=== PATIENT | female | born 1965 | race African-American/Black ===

== ENCOUNTER 2021-09-20 13:04 | Outpatient (CLI) | payer BC, SELFPAY ==
--- NOTE | ~2021-09-20 | XR_ITS ---
EXAMINATION: XR knee LT 3V DATE: 09/20/2021 13:32 INDICATION: Left knee pain. TECHNIQUE: 3 views of left knee were obtained. COMPARISON: None. FINDINGS: Bone alignment is normal. No fracture. There is mild tricompartmental osteoarthritis charac terized by tiny osteophytes. No joint space narrowing. No knee joint effusion. IMPRESSION: 1. Mild left knee osteoarthritis. Reviewed, dictated and finalized at location A.
== END 2021-09-20 13:05 | disposition home or self-care (01) ==
PROVIDERS: PCP Physician Assistant; Visit Provider Physician Assistant
DX: M25.562 Pain in left knee (principal); M17.12 Unilateral primary osteoarthritis, left knee
CPT/HCPCS: 73562

== ENCOUNTER 2022-06-14 19:47 | Emergency (ER) | payer OTHER, SELFPAY ==
[2022-06-14 19:56] VITALS: BP 132/89; PULSE 86; RESP 16; TEMP 36.7; O2SAT 98
[2022-06-14 19:57] VITALS: BP 132/89; PULSE 86; RESP 16; TEMP 36.7; O2SAT 98
--- NOTE | 2022-06-14 20:04 | ED.WOUNDLAC ---
HPI - Wound/Laceration General Chief Complaint: Wound/Laceration Stated Complaint: cut in lip Time Seen by Provider: 06/14/22 20:00 Source: patient Mode of arrival: ambulatory Limitations: no limitations History of Present Illness HPI narrative: 56-year-old female presented for complaint of left upper lip laceration after injury last night. She states she had a couple of alcoholic beverages, after which she slipped in the garage when getting out of her car and struck her face on the concrete. Reports mild left cheek swelling. She denies loss of consciousness. States the bleeding resolved on its own. She applied bacitracin and ice and took Tylenol. Denies broken teeth, headache, vision changes, dizziness, n/v. Related Data Home Medications Medication Instructions Recorded Confirmed atorvastatin 20 mg tablet mg 06/14/22 losartan 100 tablet 06/14/22 mg-hydrochlorothiazide 12.5 mg tablet Allergies Allergy/AdvReac Type Severity Reaction Status Date / Time No Known Allergies Allergy Verified 06/14/22 19:56 Review of Systems Review of Systems: CONSTITUTIONAL: Denies body aches, fever, chills, or sweats. EYES: Denies visual changes, redness, or discharge. ENT: Denies rhinorrhea, congestion CARDIOVASCULAR: Denies chest pain, palpitations, or edema. RESPIRATORY: Denies cough or dyspnea. GASTROINTESTINAL: Denies abdominal pain, nausea, vomiting, or diarrhea. SKIN: per HPI MUSCULOSKELETAL: Denies back pain, joint pain, or myalgia. NEUROLOGIC: Denies headache, numbness, tingling, or weakness. [facility] Past Medical History Medical History Hypertension Comments At time of signature, I have reviewed and agree with nursing past medical, surgical, social and family history unless otherwise noted. Please see nursing chart for further information. There is no relevant family history pertinent to the presenting complaint Exam Narrative: GENERAL: Well-appearing HEAD: Normocephalic, atraumatic. EYES: conjunctivae clear, and EOMI. ENT: Mucous membranes moist. Left upper lip laceration approximately 1.5 cm, no active bleeding. Margins are approximating. No vermilion border involvement. Moderate lip swelling. Dentition intact without laxity. oropharynx without edema, erythema or lesions. NECK: Supple. No lymphadenopathy CHEST: Clear to auscultation. HEART: Regular rate and rhythm. SKIN: Warm, dry. NEURO: Alert and oriented x3. HENMT: Mouth/tongue images: 1. site of laceration Course Course Emergency Course: Patient is aware of diagnosis, understands and agrees to treatment plan. Anticipatory guidance given. Patient agrees to follow-up as directed and is aware of reasons to seek care at the emergency department. Portions of this record may have been created with voice recognition software Level of Care: Express Care Visit Vital Signs Vital signs: Vital Signs Temperature 98.1 F 06/14/22 19:56 Pulse Rate 86 06/14/22 19:56 Respiratory Rate 16 06/14/22 19:56 Blood Pressure 132/89 06/14/22 19:56 Pulse Oximetry 98 06/14/22 19:56 Oxygen Delivery Room Air 06/14/22 19:56 Temperature 98.1 F 06/14/22 19:57 Pulse Rate 86 06/14/22 19:57 Respiratory Rate 16 06/14/22 19:57 Blood Pressure 132/89 06/14/22 19:57 Pulse Oximetry 98 06/14/22 19:57 Oxygen Delivery Room Air 06/14/22 19:57 Reviewed MDM - Wound/Laceration MDM Narrative Medical decision making narrative: Discussed physical exam findings. Wound appears healing. Updated tetanus, Rx antibiotics. Advised supportive measures and signs/symptoms to go to the ER. Pt is appropriate for outpt treatment and f/u. Differential Diagnosis Differential diagnosis: Likely laceration, abrasion and avulsion of skin Discharge Plan Discharge Clinical Impression: Laceration of lip Qualifiers: Encounter type: initial encounter Qualified Code(s):
[2022-06-14] MEDS: TETANUS,DIPHTHERIA,AC PERTUSSIS ADULT (0.5 ML) BOOSTRIX IM (20:09)
== END 2022-06-14 20:15 | disposition home or self-care (01) ==
PROVIDERS: Emergency Provider Nurse Practitioner Family
DX: S01.511A Laceration without foreign body of lip, initial encounter (principal); V48.4XXA Person boarding or alighting a car injured in noncollision transport accident, initial encounter; Z23 Encounter for immunization; I10 Essential (primary) hypertension
CPT/HCPCS: 90471; 90715; 99212; G0463

== ENCOUNTER → 2022-11-04 10:41 | Outpatient (CLI) | payer OTHER, SELFPAY ==
--- NOTE | ~2022-11-04 | MR_ITS ---
MRI of the left knee Clinical history: Medial meniscal tear Technique: Coronal proton density and proton density-weighted images, sagittal proton-density and T2 fat-sat images, and axial proton-density fat-saturated images were acquired. Findings: Anterior and posterior cruciate ligaments are intact. Medial collateral ligament and the la teral collateral ligament complex are intact. Popliteus tendon is intact. There is complex tearing of the posterior horn and body medial meniscus. No definite lateral meniscal tear seen. There is high-grade chondromalacia extensively involving the medial compartment, with subchondral mar row edema in the medial tibial plateau region. There is mild to moderate chondromalacia of the latera l compartment. There is mild chondromalacia patella. There is extensive moderate chondromalacia the f emoral trochlea. Small tricompartmental osteophytes are present. Extensor mechanism is intact. Small joint effusion present. No Sanderson's cyst. Impression: Complex tearing of the posterior horn and body of the medial meniscus. Mild tricompartmental degenerative change, as detailed above. Small joint effusion. Reviewed, dictated and finalized at location . Impression: Complex tearing of the posterior horn and body of the medial meniscus. Mild tricompartmental degenerative change, as detailed above. Small joint effusion.
== END ==
DX: M23.222 Derangement of posterior horn of medial meniscus due to old tear or injury, left knee (principal); M25.462 Effusion, left knee
CPT/HCPCS: 73721

== ENCOUNTER 2023-09-09 01:33 | Day surgery (SDC) | payer OTHER, SELFPAY ==
--- NOTE | 2023-09-03 13:11 | PC.NURSE ---
5 attempts have been made to reach pt for pre-op interview and instructions with no answer- messages have been left on voicemail for pt to call back with no return calls. I called Sherri Castaneda PA-C and no other numbers for patient are listed. They will attempt to call pt today to have her call us.
--- NOTE | 2023-09-05 12:25 | PC.NURSE ---
Multiple attempts made since 08/27/2023 with voice messages left 7 times with no response. I spoke with Dr. Castaneda office and they reached out yesterday with no response and will attempt again today. I did inform them as well as leaving a message on pts voicemail that if we do not hear back today or over the weekend her prodedures will be canceled Friday.
[2023-09-05 14:55] VITALS: BMI 36.1
[2023-09-09 12:43] VITALS: BP 127/90; PULSE 89; RESP 18; TEMP 36.1; O2SAT 100
[2023-09-09] MEDS: LACTATED RINGERS 1,000 ML 150 ML IV CONT (12:58)
--- NOTE | 2023-09-09 13:02 | WPDANESEPPF ---
Anes - Initial Pre Proc Eval Procedure: Operation Date: 09/09/23 14:00 Proposed Procedures p Esophagogastroduodenoscopy & Colonoscopy - Zeferino Nevarez MD Date/Time: 09/09/23 13:02 Surgeon: Zeferino Nevarez MD Pre Op Diagnosis: iron deficiency anemia unspecified, change in patt Patient Data Age: 58 Gender: F Height: 1.63 m Weight: 94.5 kg Last Vital Signs Temp 36.1 C L 09/09/23 12:43 Pulse 89 09/09/23 12:43 Resp 18 09/09/23 12:43 BP 127/90 09/09/23 12:43 Pulse Ox 100 09/09/23 12:43 O2 Del Method Room Air 09/09/23 12:43 Allergies Allergy/AdvReac Type Severity Reaction Status Date / Time No Known Allergies Allergy Verified 09/09/23 12:41 Home Medications Medication Instructions Recorded Confirmed Type atorvastatin 20 mg tablet 20 mg PO DAILY 06/14/22 09/05/23 History losartan 100 1 tablet PO DAILY 06/14/22 09/09/23 History mg-hydrochlorothiazide 12.5 mg tablet pantoprazole 40 mg tablet,delayed 40 mg PO DAILY 09/05/23 09/05/23 History release sertraline 50 mg tablet 50 mg PO DAILY 09/05/23 09/05/23 History Patient hx anesthesia problems: none Family hx anesthesia problems: none Results Review: All pre-operative results and documents have been reviewed as part of the pre-operative evaluation. [facility] Past Medical History Medical History (Updated 09/09/23 @ 13:02 by Woo Angel MD) Hypertension Obesity Surgical History Surgical History (Updated 09/09/23 @ 13:05 by Woo Angel MD) History of tubal ligation Social History Social History Smoking packs per day: 0.5 Smoking cigarettes per day: 10.0 Years smoked: 15 Smoking pack-years: 7.50 Smoking status: Current every day smoker Tobacco type: cigarettes Alcohol intake: current Drinks per week: 3 Alcohol use details: GLASSES WINE Substance use: never Substance use type: does not use Living arrangements: with family Spiritual care concerns: No Anes - Eval Final PreProcedure Day of Procedure 09/09/23 13:02 Patient weight: obese Heart: regular rate and rhythm Lungs: clear to auscultation Airway: Mallampati scale class II Neurological: alert and oriented Last oral intake: >/= 8 hours ASA classification: III Emergent: no Anesthetic plan: proceed Anesthesia type and monitoring: general GIVS and standard monitoring Results Review: All pre-operative results and documents have been reviewed as part of the pre-operative evaluation. Informed Consent: The patient's anesthetic plan and its attendant risks and benefits were discussed with the patient/family/POA. Questions were solicited and answers provided to the satisfaction of the patient/family/POA.
--- NOTE | 2023-09-09 13:34 | PM.HPGS ---
History of Present Illness History of Present Illness Consent: Risks, benefits, and alternatives have been discussed and questions answered. Patient agrees to proceed with procedure. Chief complaint: iron deficiency anemia unspecified, change in patt Narrative: Natalie Sparks is a 58 year old female with constipation, bloating and abdominal discomfort, last colonoscopy about 16 years ago. Review of Systems Review of Systems: All systems reviewed & are unremarkable except as noted in HPI and below PMFSH Past Medical History Medical History (Updated 09/09/23 @ 13:02 by Woo Angel MD) Hypertension Obesity Surgical History Surgical History (Updated 09/09/23 @ 13:05 by Woo Angel MD) History of tubal ligation Social History Social History Smoking packs per day: 0.5 Smoking cigarettes per day: 10.0 Years smoked: 15 Smoking pack-years: 7.50 Smoking status: Current every day smoker Tobacco type: cigarettes Alcohol intake: current Drinks per week: 3 Alcohol use details: GLASSES WINE Substance use: never Substance use type: does not use Living arrangements: with family Spiritual care concerns: No Meds Home Medications and Allergies Home Medications Medication Instructions Recorded Confirmed Type atorvastatin 20 mg tablet 20 mg PO DAILY 06/14/22 09/05/23 History losartan 100 1 tablet PO DAILY 06/14/22 09/09/23 History mg-hydrochlorothiazide 12.5 mg tablet pantoprazole 40 mg tablet,delayed 40 mg PO DAILY 09/05/23 09/05/23 History release sertraline 50 mg tablet 50 mg PO DAILY 09/05/23 09/05/23 History Allergies Allergy/AdvReac Type Severity Reaction Status Date / Time No Known Allergies Allergy Verified 09/09/23 12:41 Vital Signs Vital Signs - 24 hr 09/09/23 12:43 Temperature 97 F L Pulse Rate 89 Respiratory Rate 18 Blood Pressure 127/90 Pulse Oximetry 100 Oxygen Delivery Room Air Exam Const: General: comfortable and no acute distress HENMT: Face/Nose/Sinus: Normal nares present Eyes: General: appearance normal, both eyes and all related structures Neck: Neck: no JVD Resp: Auscultation: clear to auscultation bilaterally Cardio: Rate: regular rate Rhythm: regular rhythm GI: Inspection: non-distended GI Palp: Yes Soft to palpation Skin: General skin exam: normal color Neuro: General: gait normal Speech: normal speech Extrem: General: normal to inspection Psych: Mental Status: mental status grossly normal Assessment and Plan Assessment and plan (1) Abdominal bloating: Code(s): R14.0 - Abdominal distension (gaseous) Status: Acute Assessment and Plan: egd and colonoscopy (2) Constipation: Qualifiers: Constipation type: chronic idiopathic constipation Qualified Code(s): K59.04 - Chronic idiopathic constipation Code(s): K59.00 - Constipation, unspecified Status: Acute (3) Change in bowel habits: Code(s): R19.4 - Change in bowel habit Status: Acute (4) BROOK (iron deficiency anemia): Qualifiers: Iron deficiency anemia type: unspecified iron deficiency Qualified Code(s): D50.9 - Iron deficiency anemia, unspecified Code(s): D50.9 - Iron deficiency anemia, unspecified Status: Acute
--- NOTE | 2023-09-09 13:57 | SUR.OPER ---
EGD START 1340, END 1344 COLONOSCOPY START 1349, END 1358
[2023-09-09 14:03] VITALS: BP 117/80; PULSE 96; RESP 19; O2SAT 100
[2023-09-09 14:13] VITALS: BP 132/92; PULSE 76; RESP 17; O2SAT 100
[2023-09-09 14:23] VITALS: BP 133/84; PULSE 60; RESP 15; O2SAT 100
== END 2023-09-09 14:48 | disposition home or self-care (01) ==
PROVIDERS: PCP Physician Assistant; Referring Provider Nurse Practitioner Family; Visit Provider Internal Medicine Gastroenterology
PROC: 0DJ08ZZ Inspection of Upper Intestinal Tract, Via Natural or Artificial Opening Endoscopic (ICD-10-PCS; CPT 43235; principal; 2023-09-09 14:00)
DX: K29.50 Unspecified chronic gastritis without bleeding (principal); K64.8 Other hemorrhoids; K59.00 Constipation, unspecified; D50.9 Iron deficiency anemia, unspecified; I10 Essential (primary) hypertension; E66.9 Obesity, unspecified; Z68.35 Body mass index [BMI] 35.0-35.9, adult; F17.210 Nicotine dependence, cigarettes, uncomplicated
CPT/HCPCS: 45378; 43239; 88305; 88342; J2704; J7120

== ENCOUNTER 2023-11-05 13:04 | Outpatient (CLI) | payer OTHER, SELFPAY ==
--- NOTE | ~2023-11-05 | MM_ITS ---
EXAMINATION: MM screening raghu BI w harvey HISTORY: Screening mammogram TECHNIQUE: Craniocaudal and mediolateral oblique 3-D tomosynthesis images were obtained and synthetic 2-D images were generated. CAD analysis was submitted and interpreted. COMPARISON: No prior mammogram is available for comparison at this institution. BREAST PARENCHYMAL COMPOSITION:Not Dense. The breasts are almost entirely fatty FINDINGS: No suspicious mass, calcification, or architectural distortion are identified in either chuy ast to suggest malignancy. There has been no suspicious interval change. IMPRESSION: No mammographic evidence of malignancy. Recommend routine screening mammography in one year. BI-RADS Category 1: Negative Reviewed, dictated and finalized at location .
== END 2023-11-05 13:05 | disposition home or self-care (01) ==
LOC: MICIMG 13:05
PROVIDERS: PCP Physician Assistant; Visit Provider Physician Assistant
DX: Z12.31 Encounter for screening mammogram for malignant neoplasm of breast (principal)
CPT/HCPCS: 77063; 77067

== ENCOUNTER 2023-12-03 06:52 | Emergency (ER) | payer OTHER, SELFPAY ==
[2023-12-03 06:52] VITALS: BP 116/91; PULSE 80; RESP 18; TEMP 36.4; O2SAT 100
[2023-12-03 07:55] LABS: BEDSIDEPREGUCG Negative (Negative)
[2023-12-03 07:58] LABS: Basophils Absolute Auto 0.1 K/mm3 (0.0-0.1); Eosinophils Absolute Auto 0.2 K/mm3 (0-0.3); Eosinophils Percent Auto 3.2 % (0-4.4); Hematocrit 43.7 % (37.0-47.0); Hemoglobin 13.7 g/dL (12.0-15.0); Immature Granulocyte Absolute 0.05 K/mm3 (0.00-0.031); Immature Granulocyte Percent A 0.8 % (0-0.5); Lymphocytes Absolute Auto 2.62 K/mm3 (0.9-3.2); Lymphocytes Percent Auto 42.1 % (18.3-44.2); Mean Corpuscular HGB Conc 31.4 g/dl (32-36); Mean Corpuscular Hemoglobin 27.7 pg (26-34); Mean Corpuscular Volume 88.5 fl (80-100); Mean Platelet Volume 9.4 fl (7.4-10.4); Monocytes Absolute Auto 0.5 K/mm3 (0.1-0.6); Neutrophils Absolute Auto 2.8 K/mm3 (1.3-6.7); Neutrophils Percent Auto 44.9 % (45.5-73.1); Platelet Count Result 278 k/mm3 (150-375); Red Blood Count 4.94 M/mm3 (4.2-5.4); White Blood Count 6.2 K/mm3 (4.5-10.0)
[2023-12-03 08:07] LABS: Add Urine Microscopic? YES; Appearance Urine Cloudy (Clear); Bacteria Urine 1+ /hpf; Bilirubin Urine Negative (Negative); Blood Urine Negative (Negative); Color Urine Yellow (Yellow); Glucose Urine UA Negative (Negative); Ketones Urine Negative (Negative); Leukocyte Esterase Ur 1+ LEU/UL (Negative); Nitrate Urine Negative (Negative); Non Pathogenic Casts 0-2; Protein Urine 1+ mg/dL (Negative); RBC Urine 0-2 /hpf (0-2); Specific Grav Ur 1.017 (1.001-1.035); Squamous Epithelial Cell Urine Many /hpf (Few); Urobilinogen Urine 0.2 mg/dL (<2.0)
[2023-12-03 08:09] LABS: Alanine Aminotransferase 29 U/L (6-35); Albumin Level 4.6 g/dL (3.5-5.1); Alkaline Phosphatase 155 U/L (38-126); Anion Gap 9 mmol/L (4-12); Aspartate Amino Transferase 38 U/L (14-36); Bilirubin,Total 0.2 mg/dL (0.2-1.3); Blood Urea Nitrogen 10 mg/dL (7-17); Calcium 9.3 mg/dL (8.4-10.2); Carbon Dioxide 30 mmol/L (22-30); Chloride 102 mmol/L (98-107); Estimated CRCL calculation 83 ml/min; Estimated Glomerular Filt Rate > 60; Glucose 99 mg/dL (65-110); Potassium 3.7 mmol/L (3.4-5.0); Sodium 141 mmol/L (137-145)
[2023-12-03 08:13] LABS: Ethanol 158 mg/dL (<10)
[2023-12-03 08:30] LABS: Amphetamine Screen Urine Negative (Negative); Barbiturate Screen Urine Negative (Negative); Benzodiazepines Screen Urine Negative (Negative); Cannabinoid Screen Urine Negative (Negative); Cocaine Screen Urine Negative (Negative); Methadone Screen Urine Negative (Negative); Opiate Screen Urine Negative (Negative); Phencyclidine Screen Urine Negative (Negative)
[2023-12-03 08:38] LABS: Influenza A QL RT-PCR Negative (Negative); Influenza B QL RT-PCR Negative (Negative); RSV RNA, RT-PCR Negative (Negative); SARS-CoV-2 RNA PCR Negative (Negative)
[2023-12-03 08:44] LABS: Thyroid Stimulating Hormone Reflex 0.971 uIU/mL (0.465-4.68)
--- NOTE | 2023-12-03 09:49 | ED.PSYCH ---
HPI - Psych General Chief Complaint: Psychiatric Symptoms Stated Complaint: anxiety attack Time Seen by Provider: 12/03/23 07:06 History of Present Illness HPI Narrative: Patient is a 58-year-old female who presents ER with anxiety and depression. Patient reports she has significant stressors related to work and alcohol abuse. She drink a pt of hard liquor last night. She is having thoughts of committing suicide by taking a bottle full of blood pressure medication. She has not had SI type issues since she was in her 20s. No medical complaints. Related Data Home Medications Medication Instructions Recorded Confirmed atorvastatin 20 mg tablet 20 mg PO DAILY 06/14/22 09/05/23 losartan 100 1 tablet PO DAILY 06/14/22 09/09/23 mg-hydrochlorothiazide 12.5 mg tablet pantoprazole 40 mg tablet,delayed 40 mg PO DAILY 09/05/23 09/05/23 release sertraline 50 mg tablet 50 mg PO DAILY 09/05/23 09/05/23 Allergies Allergy/AdvReac Type Severity Reaction Status Date / Time No Known Allergies Allergy Verified 09/09/23 12:41 Review of Systems Review of Systems: All systems reviewed & are unremarkable except as noted in HPI and below Constitutional: Constitutional: Reports no additional constitutional complaints ENT: Reports system reviewed and no additional complaints, except as documented Cardiovascular: Cardiovascular: Reports no additional cardiovascular complaints Respiratory: Respiratory: Reports no additional respiratory complaints Musculoskeletal: Musculoskeletal: Reports no additional musculoskeletal complaints PMF Past Medical History Medical History (Updated 12/03/23 @ 17:44 by Chris Moncada MD) Hypertension Obesity Surgical History Surgical History (Updated 09/09/23 @ 13:05 by Woo Angel MD) History of tubal ligation Social History Social History Smoking packs per day: 0.5 Smoking cigarettes per day: 10.0 Years smoked: 15 Smoking pack-years: 7.50 Smoking status: Current every day smoker Tobacco type: cigarettes Alcohol intake: current Drinks per week: 3 Alcohol use details: GLASSES WINE Substance use: never Substance use type: does not use Living arrangements: with family Spiritual care concerns: No Exam Narrative: GENERAL: Well-appearing, well-nourished, and in no acute distress. HEAD: Normocephalic, atraumatic. ENT: Mucous membranes moist. NECK: Supple. CHEST: Clear to auscultation. No respiratory distress. HEART: Regular rate and rhythm. Normal peripheral pulses. ABDOMEN: Soft, nontender, nondistended. EXTREMITIES: Normal range of motion. No edema. SKIN: Warm, dry, no rash. NEURO: Alert and oriented x3. PSYCH: Patient sources depression and SI. No HI. Not responding to internal stimuli. Course Course Emergency Course: Patient medically cleared for psychiatric care. Evaluated by crisis and patient is voluntary. Accepted to [facility] by Dr. Mendez at 1743 Vital Signs Vital signs: Vital Signs Temperature 97.6 F 12/03/23 06:52 Pulse Rate 80 12/03/23 06:52 Respiratory Rate 18 12/03/23 06:52 Blood Pressure 116/91 H 12/03/23 06:52 Pulse Oximetry 100 12/03/23 06:52 Oxygen Delivery Room Air 12/03/23 06:52 Temperature 97.6 F 12/03/23 16:59 Pulse Rate 77 12/03/23 16:59 Respiratory Rate 16 12/03/23 16:59 Blood Pressure 152/102 H 12/03/23 16:59 Pulse Oximetry 100 12/03/23 16:59 Oxygen Delivery Room Air 12/03/23 06:52 MDM - Psych Lab Data 12/03/23 07:51 12/03/23 07:51 Labs: Lab Results 12/03/23 12/03/23 12/03/23 Range/Units 07:51 07:54 12:19 WBC 6.2 (4.5-10.0) K/mm3 RBC 4.94 (4.2-5.4) M/mm3 Hgb 13.7 (12.0-15.0) g/dL Hct 43.7 (37.0-47.0) % MCV 88.5 (80-100) fl MCH 27.7 (26-34) pg MCHC 31.4 L (32-36) g/dl RDW 14.0 (11.5-14.5) % Plt Count 278
[2023-12-03 12:14] VITALS: BP 134/88; PULSE 70; RESP 17; TEMP 36.6; O2SAT 100
[2023-12-03 12:36] LABS: Ethanol 28 mg/dL (<10)
--- NOTE | 2023-12-03 14:54 | PC.NURSE ---
crisis at bedside at this time to assess patient.
--- NOTE | 2023-12-03 16:19 | PC.NURSE ---
[facility]. [facility] to call back for RN to RN report.
[2023-12-03 16:59] VITALS: BP 152/102; PULSE 77; RESP 16; TEMP 36.4; O2SAT 100
[2023-12-03 21:29] VITALS: BP 138/78; PULSE 66; RESP 20; TEMP 36.3; O2SAT 99
== END 2023-12-03 21:34 ==
PROVIDERS: Emergency Provider Emergency Medicine; PCP Physician Assistant
DX: F32.9 Major depressive disorder, single episode, unspecified (principal); F10.10 Alcohol abuse, uncomplicated; Y90.6 Blood alcohol level of 120-199 mg/100 ml; R45.851 Suicidal ideations; Z11.52 Encounter for screening for COVID-19; I10 Essential (primary) hypertension; E66.9 Obesity, unspecified; Z68.34 Body mass index [BMI] 34.0-34.9, adult; F17.210 Nicotine dependence, cigarettes, uncomplicated
CPT/HCPCS: 36415; 80053; 80307; 81001; 81025; 82077; 84443; 85025; 87086; 87637; 99285

== ENCOUNTER 2024-03-15 14:43 | Emergency (ER) | payer OTHER, SELFPAY ==
[2024-03-15 14:47] VITALS: BP 142/90; PULSE 106; RESP 20; TEMP 37.9; O2SAT 97
[2024-03-15 15:20] LABS: EDCOVIDSCREEN Negative (Negative); EDINFLUASCREEN Positive (Negative); EDINFLUBSCREEN Negative (Negative)
--- NOTE | 2024-03-15 15:27 | ED.URI ---
HPI - URI/Sore Throat General Chief Complaint: Upper Respiratory Infection Stated Complaint: Chills/Bodyaches Time Seen by Provider: 03/15/24 15:19 Source: patient and RN notes reviewed Mode of arrival: ambulatory Limitations: no limitations History of Present Illness HPI Narrative: Patient presents today complaining of body aches, cough, chills, lightheadedness, and 1 episode of vomiting. Symptoms began last night. Denies shortness of breath or fever. She took 1 Aleve today without much relief. 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 Related Data Home Medications ?Medication ?Instructions ?Recorded ?Confirmed ?Last Taken ?Type atorvastatin 20 mg tablet 20 mg PO DAILY 06/14/22 09/05/23 Unknown History losartan 100 1 tablet PO DAILY 06/14/22 09/09/23 09/09/23 History mg-hydrochlorothiazide 12.5 mg tablet pantoprazole 40 mg tablet,delayed 40 mg PO DAILY 09/05/23 09/05/23 Unknown History release sertraline 50 mg tablet 50 mg PO DAILY 09/05/23 09/05/23 Unknown History Allergies Allergy/AdvReac Type Severity Reaction Status Date / Time No Known Allergies Allergy Verified 03/15/24 14:58 Review of Systems Review of Systems: CONSTITUTIONAL: Denies fever, or sweats.+ body aches, chills EYES: Denies visual changes, redness, or discharge. ENT: Denies rhinorrhea, congestion, sore throat, or otalgia. CARDIOVASCULAR: Denies chest pain, palpitations, or edema. RESPIRATORY: Denies dyspnea.+ cough GASTROINTESTINAL: Denies abdominal pain, nausea,or diarrhea.+ vomiting GENITOURINARY: Denies dysuria or hematuria. SKIN: Denies rash, itching, or wounds. MUSCULOSKELETAL: Denies back pain, joint pain, or myalgia. NEUROLOGIC: Denies headache, numbness, tingling, or weakness.+ lightheadedness PSYCH: Denies depression or anxiety. [facility] Past Medical History Medical History Obesity Hypertension Surgical History Surgical History History of tubal ligation Social History Social History Smoking packs per day: 0.5 Smoking cigarettes per day: 10.0 Years smoked: 15 Smoking pack-years: 7.50 Smoking status: Current every day smoker Tobacco type: cigarettes Alcohol intake: current Drinks per week: 3 Alcohol use details: GLASSES WINE Substance use: never Substance use type: does not use Living arrangements: with family Spiritual care concerns: No Comments At time of signature, I have reviewed and agree with nursing past medical, surgical, social and family history unless otherwise noted. Please see nursing chart for further information. There is no relevant family history pertinent to the presenting complaint Exam Narrative: GENERAL: Mildly ill-appearing, well-nourished, and in no acute distress. HEAD: Normocephalic, atraumatic. EYES: EOMI. No redness or drainage. Conjunctivae normal. ENT: Mucous membranes pink and moist. Nares mildly congested. No rhinorrhea. TMs normal bilaterally. Throat normal. Uvula midline. NECK: Normal AROM. Supple. No lymphadenopathy. CHEST: No respiratory distress. Clear to auscultation. HEART: Regular rate and rhythm. No murmur appreciated. ABDOMEN: Soft, nontender, nondistended, normal active bowel sounds. EXTREMITIES: Normal range of motion. No edema. SKIN: Warm, dry, no rash. Capillary refill normal. Normal skin turgor. NEURO: No focal deficits. Alert and oriented x3. Gait steady. PSYCH: Normal affect. No signs of depression or anxiety. Course Course Level of Care: Express Care Visit Vital Signs Vital signs: Vital Signs Temperature 100.2 F H 03/15/24 14:47 Pulse Rate 106 H 03/15/24 14:47 Respiratory Rate 03/15/24 14:47 Blood Pressure 142/90 H 03/15/24 14:47 Pulse Oximetry 97 03/15/24 14:47 Oxygen Delivery Room Air 03/15/24 14:47 Temperature 100.2 F H 03/15/24 14:47 Pulse Rate 106 H 03/15/24 14:47 Respiratory Rate 03/15/24 14:47 Blood Pressure 142/90 H 03/15/24 14:47 Pulse Oximetry 97 03/15/24 14:47 Oxygen Delivery Room Air 03/15/24 14:47 Reviewed MDM - URI/Sore Throat MDM Narrative Medical decision making narrative: COVID negative. Influenza a positive. Prescription for Tamiflu and Zofran sent to pharmacy. Anticipatory guidance given. ED precautions given. Differential Diagnosis Differential diagnosis: Likely upper respiratory infection, viral infection, influenza and other (COVID-19) Lab Data Attestation: I reviewed the patient's lab results. Labs: Lab Results 03/15/24 Range/Units 15:19 POC Influenza A Ag Positive (Negative) POC Influenza B Ag Negative (Negative) POC SARS CoV-2 Ag Negative (Negative) Critical Care Time Critical Care Time Critical Care Time: No Discharge Plan Discharge Clinical Impression: Influenza A Patient Disposition: Home, Self-Care Condition: Stable Instructions: Influenza (DC) Additional Instructions: You have tested positive for influenza A. Please take the Tamiflu as prescribed until gone. Take the Zofran as needed for nausea or vomiting. Rest and stay hydrated. Take Tylenol or ibuprofen for pain or fever. Follow-up with your PCP in 1 week if symptoms are not improving. Go to the ER immediately for worsening symptoms such as shortness of breath, chest pain, dehydration. Your blood pressure was elevated above 120/80 today at Urgent Care. This puts you above the threshold for follow up. Please schedule a followup visit with your personal physician as soon as possible, for further evaluation and treatment. Even blood pressure exceeding 120/80 may indicate pre-hypertension. Patient Language: Syriac Prescriptions: New ondansetron 8 mg tablet,disintegrating 8 mg PO Q4-6H PRN (Reason: nausea and vomiting) Qty: 20 0RF oseltamivir [Tamiflu] 75 mg capsule 75 mg PO Q12H 5 Days Qty: 10 0RF No Action atorvastatin 20 mg tablet 20 mg PO DAILY losartan-hydrochlorothiazide 100-12.5 mg tablet 1 tablet PO DAILY pantoprazole 40 mg tablet,delayed release (DR/EC) 40 mg PO DAILY sertraline 50 mg tablet 50 mg PO DAILY Follow-up/Referrals: Leonel,MANUELITO Venegas [Primary Care Provider] - Stand Alone Forms: Work/School Release IP Time of Disposition: 15:31
== END 2024-03-15 15:35 | disposition home or self-care (01) ==
PROVIDERS: Emergency Provider Nurse Practitioner; PCP Physician Assistant
DX: J10.1 Influenza due to other identified influenza virus with other respiratory manifestations (principal); Z20.822 Contact with and (suspected) exposure to COVID-19; F17.210 Nicotine dependence, cigarettes, uncomplicated; I10 Essential (primary) hypertension; E66.9 Obesity, unspecified
CPT/HCPCS: 87426; 87804; 99213; G0463

== ENCOUNTER 2024-08-19 13:08 | Emergency (ER) | payer OTHER, SELFPAY ==
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
[2024-08-19 13:03] VITALS: BP 155/83; PULSE 67; RESP 16; TEMP 36.8; O2SAT 99
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
--- OUTSIDE RECORDS SUMMARY | 2024-08-19 14:59 | XMS_ITS | Clinical Summary ---
Author Organization [facility] [address] Address [address] [place] [phone] Care Team Providers Care Tax Investigator Name Role Phone Sherri Castaneda Primary Care Provider + Allergies No known active allergies Medications losartan-hydroCHLOR Othiazide (HYZAAR) 100-12.5 mg per tablet Active acetaminophen (TYLENOL) 325 mg tablet Take 2 tablets (650 mg total) by mouth every 6 (six) hours as needed for pain Active atorvastatin (LIPITOR) 20 mg tablet Take 1 tablet (20 mg total) by mouth daily 3 Active naproxen (NAPROSYN) 500 mg tablet Take 1 tablet (500 mg total) by mouth 2 (two) times a day as needed for pain 60 tablet 4 Active lidocaine (LIDODERM) 5 % Place 1 patch on the skin daily Remove & discard patch within 12 hours or as directed by MD. 30 patch [address] (PROTONIX) 40 mg EC tablet Take 1 tablet (40 mg total) by mouth daily 4 Active sertraline (ZOLOFT) 50 mg tablet Take 1 tablet (50 mg total) by mouth daily 4 Active thiamine (VITAMIN B1) 100 mg tablet Take 1 tablet (100 mg total) by mouth daily 4 Active celecoxib (CeleBREX) 200 mg capsuleIndications: Primary osteoarthritis of right knee Take 1 capsule (200 mg total) by mouth 2 (two) times a day for 7 days 14 capsule 5 Active Active Problems Problem Noted Date Diagnosed Date Primary osteoarthritis of left knee 05/26/2024 Assessment & Plan (05/26/2024 11:04 AM CDT): Injection done as noted in the procedure note today. Patient tolerated the procedure well. Advised to watch for signs of infection or bleeding and to go to the ER or call me if any of these occur. I advise that will take upwards of six weeks for this to be fully effective but it should gradually improve over time. If this is not acceptable for her at six weeks we can reconsider other options but may need to consider referral to surgery. Patient is due to see me next week for the right side and we will get her approved for the gel injections there as well but I will do a workup on her as it has been quite a bit of time since she has had a right knee x-ray as well. She exhibited understanding and is in agreement with this plan of care. Constipation 01/21/2023 Essential hypertension 02/28/2022 Hyperlipidemia 02/28/2022 Obesity 09/20/2021 Prediabetes 01/25/2021 Resolved Problems Problem Noted Date Diagnosed Date Resolved Date Chest pain 01/21/2023 01/21/2023 Corneal abrasion 01/21/2023 01/21/2023 Diabetes mellitus 01/21/2023 01/21/2023 Overview (01/21/2023): Removal Reason: Patient denies condition Impacted cerumen 01/21/2023 05/13/2023 Increased frequency of urination 01/21/2023 01/21/2023 Skin lesion 01/21/2023 01/21/2023 Encounters Date Type Department Care Team Description 06/23/2024 1:45 PM CDT Office Visit [facility] Sports Medicine and Primary Care at [address] [phone] Edwardo Obrien DO Primary osteoarthritis of right knee (Primary Dx) 06/02/2024 11:15 AM CDT Ancillary Procedure [facility] Imaging at [address] [phone] Chronic pain of right knee 06/02/2024 10:45 AM CDT Office Visit [facility] Sports Medicine and Primary Care at [address] [place] [phone] Edwardo Obrien, Primary osteoarthritis of right knee (Primary Dx); Chronic pain of right knee 06/02/2024 Documentation [facility] Sports Medicine and Primary Care at [address] [phone] LindaBlossom MA 05/26/2024 10:15 AM CDT Procedure visit [facility] Sports Medicine and Primary Care at [address] [phone] Edwardo Obrien, Primary osteoarthritis of left knee (Primary Dx) from Last 3 Months Immunizations Immunization Administration Dates Next Due Influenza, Quadrivalent, Split, Intramuscular ,12/29/2015 Tdap 04/06/2014 Medical History Medical History Date Comments Arthritis L knee Essential hypertension 02/28/2022 Hyperlipidemia 02/28/2022 Prediabetes 01/25/2021 Family History Medical History Relation Name Comments Arthritis Other Hypertension Other Relation Name Status Comments Other Social History Tobacco Use Types Packs/Day Years Used Date Smoking Tobacco: Every Day Cigarettes Tobacco Cessation:Ready to Q uit: Not Asked; Counseling Given: Not Answered AUDIT-C Answer Date Recorded Q1: How often do you have a drink containing alcohol? Never 08/13/2023 Q2: How many drinks containi ng alcohol do you have on a typical day when you are drinking? Patient does not drink Q3: How often do you have si x or more drinks on one occasion? 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 Gender Identity Not on file Sexual Orientation Not on file Obstetrics History Last Filed Vital Signs Vital Sign Reading Time Taken Comments Blood Pressure 150/94 06/23/2024 2:02 PM CDT Pulse 84 06/23/2024 2:02 PM CDT Temperature 36.6 C (97.8 F) 09/05/2022 7:00 PM CDT Respiratory Rate 16 06/02/2024 11:26 AM CDT Oxygen Saturation 100% 09/05/2022 7:00 PM CDT Inhaled Oxygen Concentration - - Weight 94.3 kg (208 lb) 06/23/2024 2:02 PM CDT Height 162.6 cm (5' 4) 06/23/2024 2:02 PM CDT Body Mass Index 35.7 06/23/2024 2:02 PM CDT Plan of Treatment Health Maintenance Due Date Last Done Comments Breast Cancer Screening-Mammogram 1966 Cervical Cancer Screening 1966 Colon Cancer Screening-Colonoscopy 1966 Depression Screening 1966 Hepatitis C Screening 1966 Hepatitis B Screening 1984 Regular Well Visit/Exam 18-64 1984 Pneumococcal vaccine <65 (1 of 2 - PCV) 1985 Zoster Vaccine (1 of 2) 2016 Covid-19 Vaccine (2 - season) 10/19/202309/2020 DTaP/Tdap/Td Vaccine (2 - Td or Tdap) 04/06/2024 Influenza Vaccine (Season Ended) 2024 01/05/20 19, 12/29/2015 Procedures Procedure Name Priority Date/Time Associated Diagnosis Comments [place] ARTHROCENTESIS ASPIR&/INJ MAJOR JT/BURSA W/US Routine 06/23/2024 1:45 PM CDT Primary osteoarthritis of right knee XR KNEE RIGHT 4 OR MORE VIEWS Schedule Routine, Read Routine (OP Routine) 06/02/2024 11:19 AM CDT Chronic pain of right knee [place] ARTHROCENTESIS ASPIR&/INJ MAJOR JT/BURSA W/US Routine 05/26/2024 10:15 AM CDT Primary osteoarthritis of left knee from Last 3 Months Results * [place] ARTHROCENTESIS ASPIR&/INJ MAJOR JT/BURSA W/US (06/23/2024 1:45 PM CDT) Narrative Edwardo Obrien DO - 06/23/2024 1:45 PM CDT Edwardo Obrien DO 06/23/2024 2:36 PM Large Joint Injection w/ Ultrasound Guidance: R knee Performed by: Edwardo Obrien DO Authorized by: Edwardo Obrien DO Large Joint Injection/Aspiration: Consent Given by: Patient Site marked: the procedure site was marked Timeout: prior to procedure the correct patient, procedure, and site was verified Verbal consent obtained: Yes Supporting Documentation: Indications: Pain Procedure Details: Location: Knee Site: R knee Prep: patient was prepped and draped in usual sterile fashion Prep: patient was prepped using a clean technique Needle Size: 22 G Approach: Lateral Ultrasound guided: Yes Fluroscopic guidance: No Ultrasound guidance used for: Real-time guidance Sterile ultrasond techniques: Sterile gel and sterile probe covers were used Ultrasound note: Ultrasound guided right knee injection Patient name: Natalie Sparks Performing physician: Edwardo Obrien DO, LAUREEN, JAIM Reason for procedure: Right knee osteoarthritis Patient is supine with the right knee in passive 30 of flexion. The lateral knee was sterilized using Hibiclens. The L4-12 T transducer was placed on the proximal portion of the knee identifying the suprapatellar recess and joint capsule in long axis. The probe was moved to short axis and again the joint capsule was identified. A 22 gauge 1.5 in needle was inserted on the lateral aspect of the knee at the level of the capsule, and the needle tip was identified in the subcutaneous tissue. The needle was advanced, in real time, to the capsule and once noted within the capsule, a substrate of 3ml of durolane was injected into the joint capsule. Flow of fluid within the joint capsule was noted for confirmation of placement. Needle was removed, the area was cleansed, and covered with a Band-Aid. Impression: 1 - successful injection of the right knee capsule under ultrasound guidance Medications: 60 mg hyaluronate sodium, stabilized 60 mg/3 mL us Edwardo Obrien DO IN CLINIC/BEDSIDE KAROLINA JOVEL Final Result * XR Knee Right 4 or More Views (06/02/2024 11:19 AM CDT) Anatomical Region Laterality Modality Lower Extremities, Knee Right Digital Radiography 06/02/2024 12:4 1 PM CDT Narrative 06/02/2024 12:42 PM CDT EXAM DESCRIPTION: XR KNEE RIGHT 4 OR MORE VIEWS REASON FOR STUDY: pain Pt complains of right knee pain x 3 months. No known injury or prior surgery FINDINGS: Four views submitted with comparison 05/28/2022. No acute fracture. Alignment is normal. Mild medial and patellofemoral bicompartmental right knee osteoarthritis. No effusion. IMPRESSION: Mild medial and patellofemoral bicompartmental right knee osteoarthritis. THIS IS AN ELECTRONICALLY VERIFIED FINAL REPORT 06/02/2024 12:42 PM - Electronically signed by Edwardo Moore M.D. T: Report ID: [id number] Reading Location: [id number] Procedure Note Edwardo Moore MD - 06/02/2024 EXAM DESCRIPTION: XR KNEE RIGHT 4 OR MORE VIEWS REASON FOR STUDY: pain Pt complains of right knee pain x 3 months. No known injury or priorsurgery FINDINGS: Four views submitted with comparison 05/28/2022. No acute fracture. Alignment is normal. Mild medial and patellofemoral bicompartmental right knee osteoarthritis. No effusion. IMPRESSION: Mild medial and patellofemoral bicompartmental right kneeosteoarthritis. THIS IS AN ELECTRONICALLY VERIFIED FINAL REPORT 06/02/2024 12:42 PM - Electronically signed by Edwardo Moore M.D. T: Report ID: [id number] Reading Location: [id number] us Edwardo Obrien DO IMG XR PROCEDURES Harleen l Result * [place] ARTHROCENTESIS ASPIR&/INJ MAJOR JT/BURSA W/US (05/26/2024 10:15 AM CDT) Narrative Edwardo Obrien DO - 05/26/2024 10:15 AM CDT Edwardo Obrien DO 05/27/2024 9:36 AM Large Joint Injection w/ Ultrasound Guidance: L knee Performed by: Edwardo Obrien DO Authorized by: Edwardo Obrien DO Large Joint Injection/Aspiration: Consent Given by: Patient Site marked: the procedure site was marked Timeout: prior to procedure the correct patient, procedure, and site was verified Verbal consent obtained: Yes Supporting Documentation: Indications: Pain Procedure Details: Location: Knee Site: L knee Prep: patient was prepped and draped in usual sterile fashion Prep: patient was prepped using a clean technique Needle Size: 22 G Approach: Lateral Ultrasound guided: Yes Ultrasound guidance used for: Real-time guidance Sterile ultrasond techniques: Sterile gel and sterile probe covers were used Ultrasound note: Ultrasound guided left knee injection Patient name: Natalie Bridger Performing physician: LAUREEN Akers DO, CAQSM Reason for procedure: OA left knee Patient is supine with the left knee in passive 30 of flexion. The lateral knee was sterilized using Hibiclens. The L4-12 T transducer was placed on the proximal portion of the knee identifying the suprapatellar recess and joint capsule in long axis. The probe was moved to short axis and again the joint capsule was identified. A 22 gauge 1.5 in needle was inserted on the lateral aspect of the knee at the level of the capsule, and the needle tip was identified in the subcutaneous tissue. The needle was advanced, in real time, to the capsule and once noted within the capsule, a substrate of 3ml of Durolane was injected into the joint capsule. Flow of fluid within the joint capsule was noted for confirmation of placement. Needle was removed, the area was cleansed, and covered with a Band-Aid. Impression: 1 - successful injection of the left knee capsule under ultrasound guidance Medications: 60 mg hyaluronate sodium, stabilized 60 mg/3 mL Edwardo Obrien DO IN CLINIC/BEDSIDE KAROLINA JOVEL Final Result from Last 3 Months Insurance [facility] [place] [address] [facility] [employer]ENSATION GENERIC Care Teams Tax Investigator Relationship Specialty Start Date End Date Sherri Castaneda PA PCP - General Physician Assembly Room Supervisor 01/21/23
--- OUTSIDE RECORDS SUMMARY | 2024-08-19 14:59 | XMS_ITS | Clinical Summary ---
Author Organization [facility] Address [address] [place] [id number] Care Team Providers Care Chief Dog License Inspector Name Role Phone Tico Joi JUSTIN Primary Care Provider [phone] Allergies No known active allergies Medications lisinopril 20 MG tablet Take 20 mg by mouth daily. 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 Pulse 84 04/08/2019 12:29 PM TOWER OPERATOR Temperature 36.1 C (96.9 F) 04/08/2019 11:47 AM TOWER OPERATOR Respiratory Rate 14 04/08/2019 12:29 PM TOWER OPERATOR Oxygen Saturation 99% 04/08/2019 12:29 PM TOWER OPERATOR Inhaled Oxygen Concentration - - Weight 90.7 kg (200 lb) 04/08/2019 11:47 AM TOWER OPERATOR Height 160 cm (5' 3) 04/08/2019 11:47 AM TOWER OPERATOR Body Mass Index 35.43 04/08/2019 11:47 AM TOWER OPERATOR Plan of Treatment Health Maintenance Due Date Last Done Comments Cervical Cancer Screening Pa p Smear (Age 30 to 64) Every 3 Years 1966 Colorectal Cancer Screening Colonoscopy (10 Years) 1966 Annual Physical 1969 Hepatitis C 1984 DTaP, Tdap and Td Vaccines ( 1 - Tdap) 1985 Hepatitis B Vaccines (1 of 3 - 19+ 3-dose series) 1985 Pneumococcal Vaccine: 50+ Ye ars (1 of 2 - PCV) 1985 Cervical Cancer Screening Pa p with HPV Testing (Age 30 to 64) Every 5 Years 1996 Cervical Cancer Screening with HPV 1996 Mammogram Screening 2006 Zoster Vaccines (1 of 2) 2016 COVID-19 Vaccine (2023-2 5 season) 2023 Meningococcal B Vaccine Aged Out No l onger eligible based on patient's age to complete this topic Meningococcal Vaccine Aged Out No sergio pb eligible based on patient's age to complete this topic RSV Immunizations Under 20 Months Aged Out No longer eligible based on patient's age to complete this topic Insurance [facility] Care Teams Chief Dog License Inspector Relationship Specialty Start Date End Date Joi Doshi NP [address] [place] [phone] PCP - General Nurse Practitioner Family 07/06/19
--- OUTSIDE RECORDS SUMMARY | 2024-08-19 14:59 | XMS_ITS | Referral Summary ---
Author Organization [address] Address [address] [place] [phone] Care Team Providers Care Wall Crane Operator Name Role Phone Sherri Castaneda Primary Care Provider + Encounters Date Type Department Care Team Description 06/23/2024 1:45 PM CDT Office Visit [facility] Sports Medicine and Primary Care at [address] [phone] Edwardo Obrien DO Primary osteoarthritis of right knee (Primary Dx) 06/02/2024 Documentation [facility] Sports Medicine and Primary Care at [address] [phone] Blossom Linda MA 06/02/2024 11:15 AM CDT Ancillary Procedure [facility] Imaging at [address] [phone] Chronic pain of right knee 06/02/2024 10:45 AM CDT Office Visit [facility] Medical [facility] Sports Medicine and Primary Care at [address] [phone] Edwardo Obrien DO Primary osteoarthritis of right knee (Primary Dx); Chronic pain of right knee 05/26/2024 10:15 AM CDT Procedure visit [facility] Medical [facility] Sports Medicine and Primary Care at [address] [phone] Edwardo Obrien DO Primary osteoarthritis of left knee (Primary Dx) from Last 3 Months Allergies No known active allergies Medications losartan-hydroCHLOR [...] urination 01/21/2023 01/21/2023 Skin lesion 01/21/2023 01/21/2023 Immunizations Immunization Administration Dates Next Due Influenza, Quadrivalent, Split, Intramuscular ,12/29/2015 Tdap 04/06/2014 Social History Tobacco Use Types Packs/Day Years [...] on file 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 Gender Identity Not on file Sexual Orientation [...] 06/23/2024 2:02 PM CDT Plan of Treatment Not on file Procedures Procedure Name Priority Date/Time Associated Diagnosis Comments [place] ARTHROCENTESIS ASPIR&/INJ MAJOR JT/BURSA W/US Routine 06/23/2024 1:45 PM CDT Primary osteoarthritis of right knee XR KNEE RIGHT 4 OR MORE VIEWS Schedule Routine, Read Routine (OP Routine) 06/02/2024 11:19 AM CDT Chronic pain of right knee [place] ARTHROCENTESIS ASPIR&/INJ MAJOR JT/BURSA W/US Routine 05/26/2024 10:15 AM CDT Primary osteoarthritis of left knee from Last 3 Months Results * [place] ARTHROCENTESIS ASPIR&/INJ MAJOR JT/BURSA W/US (06/23/2024 1:45 [...] Sparks Performing physician: Edwardo Obrien DO, LAUREEN, KESHAQSM Reason for procedure: Right knee osteoarthritis Patient [...] mL us Edwardo Obrien DO IN CLINIC/BEDSIDE BEULAHMichael MED Final Result * XR Knee Right 4 [...] by Edwardo Moore M.D. T: Report ID: [id number] Reading Location: [id number] Procedure Note Edwardo Moore MD - 06/02/2024 [...] by Edwardo Moore M.D. T: Report ID: [id number] Reading Location: [place] [id number] us Edwardo Obrien DO IMG XR PROCEDURES Harleen l Result * [place] ARTHROCENTESIS ASPIR&/INJ MAJOR JT/BURSA W/US (05/26/2024 10:15 [...] guided left knee injection Patient name: Natalie Sparks Performing physician: LAUREEN Akers DO, CAQSM Reason [...] Final Result from Last 3 Months Insurance [facility] Address: [address] [facility] WORKERS COMPENSATION GENERIC Care Teams Wall Crane Operator Relationship Specialty Start Date End Date Sherri Castaneda PA PCP - General Physician Ladies Suit Operator 01/21/23
--- OUTSIDE RECORDS SUMMARY | 2024-08-19 15:00 | XMS_ITS | Data Portability ---
Author Organization [facility] ADELINE Rohit Sesay Address [address] [place] [address] Care Team Providers Care Retirement Consultant Name Role Phone ELDASHERRI HUGHES Primary Care Provider [phone] Assessment Encounter Date Assessment Date Assessment LastModified by Organization Details LastModified Time 03/21/2022 03/21/2022 Advised pt to f/u with PCP in 3 months. [email or web address] Not available 03/21/2022 15:53:34 07/30/2023 07/30/2023 obtain labs today Not available 07/31/2023 09:30:11 09/17/2023 09/17/2023 luís katie walker Not available 09/17/2023 15:57:43 Plan of Treatment Reminders Order Date Submit Date Provider Last Modified By Organization Details Last Modified Time Details Appointments None recorded. Lab CMP, serum or plasma 2024 025 CORINE SMYTH, Travis esteban Florez, [address] [address], [place], [address], 5 15:10:59 lipid panel, serum 2024 025 CORINE SMYTH, [facility], [facility] [address], [place], [address], 5 15:10:58 iron + total iron-yulisa ng capacity (TIBC), serum 2024 025 CORINE SMYTH, [facility] [address], [address], [place], [address], 5 15:11:00 ferritin, serum or plasma 2024 025 CORINE SMYTH, Travis Florez, [address], [place], [address], 5 15:11:01 CBC w/ auto diff 2024 025 CORINE MCDONALDRP, Travis Florez, [address], [place], [address], 5 15:11:02 HbA1c (hemoglobi n A1c), blood 2023 024 CORINE SMYTH, Travis Reeves [address], [address], [place], [address], 4 12:13:03 lipid panel, serum 2023 024 CORINE SMYTH, Travis Florez, [address], [place], [address], 4 12:13:01 vitamin D, 25-hydroxy , total, serum 2023 024 CORINE SMYTH, Travis Reeves [address], [address], [place], [address], 4 12:13:05 CMP, serum or plasma 2023 024 CORINE SMYTH, Travis Reeves [address], [address], [place], [address], 4 12:13:02 HIV 1 + 2, meaningful use set 2023 024 CORINE SMYTH, Travis Reeves [address], [address], [place], [address], 4 12:13:06 iron + total iron-yulisa ng capacity (TIBC), serum 2023 024 CORINE [facility], [address], [address], [place], [address], 4 12:13:02 ferritin, serum or plasma 2023 024 CORINE [facility], [address], [address], [place], [address], 4 12:13:04 CBC w/ auto diff 2023 024 CORINE [facility], [address], [address], [place], [address], 4 12:13:05 HbA1c (hemoglobi n A1c), blood 2023 024 [email or web address] [facility], [address], [address], [place], [address], 4 08:30:49 CMP, serum or plasma 2023 024 [email or web address] [facility], [address], [address], [place], [address], 4 08:57:51 TSH + free T4, serum 2023 024 [email or web address] [facility], [address], [address], [place], [address], 4 08:30:50 lipid panel, serum 2023 024 [email or web address] [facility], [address], [address], [place], [address], 4 08:57:51 vitamin D, 25-hydroxy , total, serum 2023 024 [email or web address] [facility], [address] [facility] [address], [address], [place], [address], 4 08:30:49 vitamin B12 + folate, serum or blood 2023 024 [email or web address] [facility], [address] [place] [address] Gaut[address], [address], [place], [address], 4 08:30:49 gamma-glut amyl transferas e (ggt), serum 2023 024 [email or web address] [facility], [address] [place], [place] [address]susan Gautam, [address], [place], [address], 4 08:30:50 CBC w/ auto diff 2023 024 [email or web address] [facility], [address] [place] [address], [address], [place], [address], 4 07:50:30 iron + total iron-yulisa ng capacity (TIBC), serum 2023 024 [email or web address] [facility], [address] [place] [address], [address], [place], [address], 4 08:30:50 ferritin, serum or plasma 2023 024 [facility], [address] [place] [address], [address], [place], [address], 4 08:30:50 Referral gastroente rologist referral 2023 024 [email or web address] Dylon Chandra MD, [address] [facility] [address], [place], [address], 4 08:05:48 gastroente rologist referral [address] [facility], [address], [place], [address], 3 11:55:53 Procedures None recorded. Surgeries None recorded. Imaging MAMMO, screening, bilateral [address] (Imaging), [address], [place], [address], 4 07:59:12 Medication Orders atorvastat in 20 mg tablet 2024 025 [facility]armacy #2510, [address] [place], [address], 5 15:00:25 thiamine HCl (vitamin B1) 100 mg tablet 2024 025 [facility] [address] [place], [address], 5 15:00:25 losartan 100 mg-hydroch lorothiazi de 12.5 mg tablet 2024 025 [facility] [address] [place], [address], 5 15:00:24 venlafaxin e ER 37.5 mg capsule,ex tended release 24 hr 2024 025 [facility]armacy #2510, [address] [place], [address], 5 14:47:09 ciclopirox 8 % topical solution 2023 024 [facility]armacy #2510, [address] [place], [address], 4 20:57:17 ketoconazo le 2 % topical cream 2023 024 [facility]armacy #2510, [address] [place] [address], [address], 4 15:57:50 pantoprazo le 40 mg tablet,del ayed release 2023 024 [facility] [address] [place], [address], 4 16:31:11 atorvastat in 20 mg tablet 2023 024 [facility]armacy #2510, [address] [place], [address], 4 16:31:11 losartan 100 mg-hydroch lorothiazi de 12.5 mg tablet 2023 024 [facility] [address] [place], [address], 4 16:31:08 pantoprazo le 40 mg tablet,del ayed release 2023 024 [facility], [address] [place] [address], [address], 4 12:26:41 sertraline 50 mg tablet [email or web address]/Pharmacy #2510, [address] [place], [address], 5 14:43:19 thiamine HCl (vitamin B1) 100 mg tablet 2023 024 [facility]armacy #2510, [address] [place], [address], 4 21:08:28 calcium 600 mg (as carbonate) -vitamin D3 10 mcg (400 unit) tablet 2023 024 [facility] [address] [place], [address], 4 12:24:26 venlafaxin e ER 37.5 mg capsule,ex tended release 24 hr 2022 023 [facility]/Pharmacy #2510, [address] [place], [address], 4 12:06:42 cholecalci ferol (vitamin D3) 1,250 mcg (50,000 unit) capsule 2022 023 [facility]acy [facility]10, [address] [place], [address], 4 12:16:37 losartan 100 mg-hydroch lorothiazi de 12.5 mg tablet 2022 023 [facility]HE[facility]/Pharmacy #2510, [address] [place], [address], 3 15:40:39 atorvastat in 20 mg tablet 2022 023 CORINE [facility]/Pharmacy #2510, [address] [place], [address], 3 15:40:14 Patient TargetsNo targets recorded. Patient Instructions Encounter Date Encounter Id Patient Instructions Last Modified By Organization Details Last Modified Time 03/21/2022 [id number] A healthy lifestyle: care instructions [email or web address] Not available 03/21/2022 15:41:36 Quitting Tobacco : Care Instructions [email or web address] Not available 03/21/2022 15:41:22 06/24/2023 [id number] GERD diet education Not available 06/24/2023 12:26:51 A healthy lifestyle: care instructions Not available 06/24/2023 12:24:24 07/30/2023 [id number] A healthy lifestyle: care instructions Not available 07/30/2023 16:24:54 03/24/2024 [id number] A healthy lifestyle: care instructions Not available 03/24/2024 15:01:32 Reason for Referral Jv Baseball Coach Referral for Altered bowel function Referring Physician: Melly Bland, Family Medicine, Encounter Date: 03/21/2022 Jv Baseball Coach Referral for Chronic diarrhea Referring Physician: Sherri Castaneda, Yard Truck Driver, Encounter Date: 06/24/2023 Results Created Date Observation Date Name Description Value Unit Range Abnormal Flag Note LastModifiedBy Organization Detail LastModifiedTime 07/30/19 24 08/01/2023 LIPID PANEL cholesterol, total 224 mg/dL 100-19 9 above high normal Not Available [facility] ([facility]) [address] [place], [address], 08/01/2023 12:13:01 07/30/19 24 08/01/2023 LIPID PANEL triglyceride s 103 mg/dL 0-149 Not Available [facility] ([facility]) [address] [place], [address], 08/01/2023 12:13:01 07/30/19 24 08/01/2023 LIPID PANEL HDL cholesterol 70 mg/dL >39 Not Available [facility] ([facility]) [address] [place], [address], 08/01/2023 12:13:01 07/30/19 24 08/01/2023 LIPID PANEL VLDL cholesterol shiv 18 mg/dL 5-40 Not Available [facility] ([facility]) [address] [place], [address], 08/01/2023 12:13:01 07/30/19 24 08/01/2023 LIPID PANEL LDL chol calc ([facility]) 136 mg/dL 0-99 above high normal Not Available [facility] ([facility]) [address] [place], [address], 08/01/2023 12:13:01 07/30/19 24 08/01/2023 COMP. METAB OLIC PANEL (14) glucose 90 mg/dL 70-99 Not Available [facility] ([facility]) [address] [place], [address], 08/01/2023 12:13:02 07/30/19 24 08/01/2023 COMP. METAB OLIC PANEL (14) BUN 9 mg/dL 6-24 Not Available [facility] ([facility]) [address] [facility] [place], [address], 08/01/2023 12:13:02 07/30/19 24 08/01/2023 COMP. METAB OLIC PANEL (14) creatinine 0.85 mg/dL 0.57-1 .00 Not Available [facility] ([facility]) [address] [facility] [place], [address], 08/01/2023 12:13:02 07/30/19 24 08/01/2023 COMP. METAB OLIC PANEL (14) eGFR 80 mL/mi n/1.7 3 >59 Not Available [facility] ([facility]) [address] [facility] [place], [address], 08/01/2023 12:13:02 07/30/19 24 08/01/2023 COMP. METAB OLIC PANEL (14) BUN/creatini ne ratio 11 9-23 Not Available [facility] ([facility]) [address] [facility] [place], [address], 08/01/2023 12:13:02 07/30/19 24 08/01/2023 COMP. METAB OLIC PANEL (14) sodium 139 mmol/ L 134-14 4 Not Available [facility] ([facility]) [address] [facility] [place], [address], 08/01/2023 12:13:02 07/30/19 24 08/01/2023 COMP. METAB OLIC PANEL (14) potassium 4.3 mmol/ L 3.5-5. 2 Not Available [facility] ([facility]) [address] [facility] [place], [address], 08/01/2023 12:13:02 07/30/19 24 08/01/2023 COMP. METAB OLIC PANEL (14) chloride 97 mmol/ L 96-106 Not Available [facility] ([facility]) [address] [facility] [place], [address], 08/01/2023 12:13:02 07/30/19 24 08/01/2023 COMP. METAB OLIC PANEL (14) carbon dioxide, total 26 mmol/ L 20-29 Not Available [facility] ([facility]) [address] [facility] [place], [address], 08/01/2023 12:13:02 07/30/19 24 08/01/2023 COMP. METAB OLIC PANEL (14) calcium 9.8 mg/dL 8.7-10 .2 Not Available [facility] ([facility]) [address] [place], [address], 08/01/2023 12:13:02 07/30/19 24 08/01/2023 COMP. METAB OLIC PANEL (14) protein, total 7.1 g/dL 6.0-8. 5 Not Available [facility] ([facility]) [address] [facility] [place], [address], 08/01/2023 12:13:02 07/30/19 24 08/01/2023 COMP. METAB OLIC PANEL (14) albumin 4.3 g/dL 3.8-4. 9 Not Available [facility] ([facility]) [address] [facility] [place], [address], 08/01/2023 12:13:02 07/30/19 24 08/01/2023 COMP. METAB OLIC PANEL (14) globulin, total 2.8 g/dL 1.5-4. 5 Not Available [facility] ([facility]) [address] [facility] [place], [address], 08/01/2023 12:13:02 07/30/19 24 08/01/2023 COMP. METAB OLIC PANEL (14) A/G ratio 1.5 Not Available [facility] ([facility]) [address] [facility] [place], [address], 08/01/2023 12:13:02 07/30/19 24 08/01/2023 COMP. METAB OLIC PANEL (14) bilirubin, total <0.2 mg/dL 0.0-1. 2 Not Available [facility] ([facility]) [address] [facility] [place], [address], 08/01/2023 12:13:02 07/30/19 24 08/01/2023 COMP. METAB OLIC PANEL (14) alkaline phosphatase 147 IU/L 44-121 above high normal Not Available [facility] ([facility]) [address] [facility] [place], [address], 08/01/2023 12:13:02 07/30/19 24 08/01/2023 COMP. METAB OLIC PANEL (14) AST (SGOT) 23 IU/L 0-40 Not Available [facility] ([facility]) [address] [facility] [place], [address], 08/01/2023 12:13:02 07/30/19 24 08/01/2023 COMP. METAB OLIC PANEL (14) ALT (SGPT) 23 IU/L 0-32 Not Available [facility] ([facility]) [address] [facility] [place], [address], 08/01/2023 12:13:02 07/30/19 24 08/01/2023 IRON AND TIBC iron bind.cap.(TI BC) 299 ug/dL 250-45 0 Not Available [facility] ([facility]) [address] [facility] [place], [address], 08/01/2023 12:13:02 07/30/19 24 08/01/2023 IRON AND TIBC UIBC 233 ug/dL 131-42 5 Not Available [facility] ([facility]) [address] [facility] [place], [address], 08/01/2023 12:13:02 07/30/19 24 08/01/2023 IRON AND TIBC iron 66 ug/dL 27-159 Not Available [facility] ([facility]) [address] [place], [address], 08/01/2023 12:13:02 07/30/19 24 08/01/2023 IRON AND TIBC iron saturation 22 % 15-55 Not Available [facility] ([facility]) [address] [place], [address], 08/01/2023 12:13:02 07/30/19 24 08/01/2023 HEMOG LOBIN A1C hemoglobin A1C 6.6 % 4.8-5. 6 above high normal Predi abete s: 5.7 - 6.4 Diabe kyra: >6.4 Glyce dione contr ol for adult s with diabe kyra: <7.0 Not Available [facility] ([facility]) [address] [place], [address], 08/01/2023 12:13:03 07/30/19 24 08/01/2023 MARY TIN ferritin 228 NG/mL 15-150 above high normal Not Available [facility] ([facility]) [address] [place], [address], 08/01/2023 12:13:04 07/30/19 24 08/01/2023 CBC WITH DIFFE RENTI AL/PL ATELE T WBC 8.9 x10e3 /uL 3.4-10 .8 Not Available [facility] ([facility]) [address] [place], [address], 08/01/2023 12:13:05 07/30/19 24 08/01/2023 CBC WITH DIFFE RENTI AL/PL ATELE T RBC 4.71 x10e6 /uL 3.77-5 .28 Not Available [facility] ([facility]) [address] [place], [address], 08/01/2023 12:13:05 07/30/19 24 08/01/2023 CBC WITH DIFFE RENTI AL/PL ATELE T hemoglobin 12.8 g/dL 11.1-1 5.9 Not Available [facility] ([facility]) [address] [facility], [place], [address], 08/01/2023 12:13:05 07/30/19 24 08/01/2023 CBC WITH DIFFE RENTI AL/PL ATELE T hematocrit 40.9 % 34.0-4 6.6 Not Available [facility] ([facility]) [address] [place], [address], 08/01/2023 12:13:05 07/30/19 24 08/01/2023 CBC WITH DIFFE RENTI AL/PL ATELE T MCV 87 fL 79-97 Not Available [facility] ([facility]) [address] [place], [address], 08/01/2023 12:13:05 07/30/19 24 08/01/2023 CBC WITH DIFFE RENTI AL/PL ATELE T MCH 27.2 pg 26.6-3 3.0 Not Available [facility] ([facility]) [address] [place], [address], 08/01/2023 12:13:05 07/30/19 24 08/01/2023 CBC WITH DIFFE RENTI AL/PL ATELE T MCHC 31.3 g/dL 31.5-3 5.7 below low normal Not Available [facility] ([facility]) [address] [place], [address], 08/01/2023 12:13:05 07/30/19 24 08/01/2023 CBC WITH DIFFE RENTI AL/PL ATELE T RDW 12.5 % 11.7-1 5.4 Not Available [facility] ([facility]) [address] [place], [address], 08/01/2023 12:13:05 07/30/19 24 08/01/2023 CBC WITH DIFFE RENTI AL/PL ATELE T platelets 352 x10e3 /uL 150-45 0 Not Available [facility] ([facility]) [address] [facility], [place], [address], 08/01/2023 12:13:05 07/30/19 24 08/01/2023 CBC WITH DIFFE RENTI AL/PL ATELE T neutrophils 63 % notest ab. Not Available [facility] ([facility]) [address] [facility], [place], [address], 08/01/2023 12:13:05 07/30/19 24 08/01/2023 CBC WITH DIFFE RENTI AL/PL ATELE T lymphs 27 % notest ab. Not Available [facility] ([facility]) [address] [facility], [place], [address], 08/01/2023 12:13:05 07/30/19 24 08/01/2023 CBC WITH DIFFE RENTI AL/PL ATELE T monocytes 6 % notest ab. Not Available [facility] ([facility]) [address] [facility], [place], [address], 08/01/2023 12:13:05 07/30/19 24 08/01/2023 CBC WITH DIFFE RENTI AL/PL ATELE T eos 2 % notest ab. Not Available [facility] ([facility]) [address] [facility], [place], [address], 08/01/2023 12:13:05 07/30/19 24 08/01/2023 CBC WITH DIFFE RENTI AL/PL ATELE T basos 1 % notest ab. Not Available [facility] ([facility]) [address] [facility], [place], [address], 08/01/2023 12:13:05 07/30/19 24 08/01/2023 CBC WITH DIFFE RENTI AL/PL ATELE T neutrophils (absolute) 5.6 x10e3 /uL 1.4-7. 0 Not Available [facility] ([facility]) [address] [place], [address], 08/01/2023 12:13:05 07/30/19 24 08/01/2023 CBC WITH DIFFE RENTI AL/PL ATELE T lymphs (absolute) 2.4 x10e3 /uL 0.7-3. 1 Not Available [facility] ([facility]) [address] [facility], [place], [address], 08/01/2023 12:13:05 07/30/19 24 08/01/2023 CBC WITH DIFFE RENTI AL/PL ATELE T monocytes(ab solute) 0.6 x10e3 /uL 0.1-0. 9 Not Available [facility] ([facility]) [address] [facility], [place], [address], 08/01/2023 12:13:05 07/30/19 24 08/01/2023 CBC WITH DIFFE RENTI AL/PL ATELE T eos (absolute) 0.2 x10e3 /uL 0.0-0. 4 Not Available [facility] ([facility]) [address] [place], [address], 08/01/2023 12:13:05 07/30/19 24 08/01/2023 CBC WITH DIFFE RENTI AL/PL ATELE T baso (absolute) 0.1 x10e3 /uL 0.0-0. 2 Not Available [facility] ([facility]) [address] [place], [address], 08/01/2023 12:13:05 07/30/19 24 08/01/2023 CBC WITH DIFFE RENTI AL/PL ATELE T immature granulocytes 1 % notest ab. Not Available [facility] ([facility]) [address] [place], [address], 08/01/2023 12:13:05 07/30/19 24 08/01/2023 CBC WITH DIFFE RENTI AL/PL ATELE T immature grans (abs) 0.0 x10e3 /uL 0.0-0. 1 Not Available [facility] ([facility]) [address] [facility], [place], [address], 08/01/2023 12:13:05 07/30/19 24 08/01/2023 VITAM IN D, 25-HY DROXY vitamin D, 25-hydroxy 10.3 NG/mL 30.0-1 00.0 below low normal Vitam in D defic iency has been defin ed by the Insti tute of Medic ine and an Endoc rine Socie ty pract ice guide line as a level of serum 25-OH vitam in D less than 20 ng/mL (1,2) . The Endoc rine Socie ty went on to furth er defin e vitam in D insuf ficie ncy as a level betwe en 21 and 29 ng/mL (2). 1. IOM (Inst itute of Medic ine). 2010. Dieta ry refer ence intak es for calci um and D. Esvin alberto [place]: The [facility] . 2. Brandon davis [place], Noemi eaton [place], Linda off-F errar i [place], et al. Evalu ation , treat ment, and preve ntion of vitam in D defic iency : an Endoc rine Socie ty clini shiv pract ice guide line. JCEM. 2010; 96(7) :1911 -30. Not Available [facility] ([facility]) [address] [facility], [place], [address], 08/01/2023 12:13:05 07/30/19 24 08/01/2023 HIV AB/P2 4 AG WITH REFLE X HIV Ab/P24 Ag screen NON REACTI VE nonrea ctive HIV Negat akash HIV-1 /HIV- 2 antib odies and HIV-1 p24 antig en were NOT detec emre. There is no labor atory evide nce of HIV infec tion. Not Available [facility] ([facility]) [address] [place], [address], 08/01/2023 12:13:06 03/24/19 25 03/25/2024 LIPID PANEL cholesterol, total 262 mg/dL 100-19 9 above high normal Not Available [facility] ([facility]) [address] [place], [address], 03/25/2024 15:10:58 03/24/19 25 03/25/2024 LIPID PANEL triglyceride s 173 mg/dL 0-149 above high normal Not Available [facility] ([facility]) [address] [place], [address], 03/25/2024 15:10:58 03/24/19 25 03/25/2024 LIPID PANEL HDL cholesterol 59 mg/dL >39 Not Available [facility] ([facility]) [address] [place], [address], 03/25/2024 15:10:58 03/24/19 25 03/25/2024 LIPID PANEL VLDL cholesterol shiv 32 mg/dL 5-40 Not Available [facility] ([facility]) [address] [place], [address], 03/25/2024 15:10:58 03/24/19 25 03/25/2024 LIPID PANEL LDL chol calc ([facility]) 171 mg/dL 0-99 above high normal Not Available [facility] ([facility]) [address] [place], [address], 03/25/2024 15:10:58 03/24/19 25 03/25/2024 COMP. METAB OLIC PANEL (14) glucose 98 mg/dL 70-99 Not Available [facility] ([facility]) [address] [place], [address], 03/25/2024 15:10:59 03/24/19 25 03/25/2024 COMP. METAB OLIC PANEL (14) BUN 14 mg/dL 6-24 Not Available [facility] ([facility]) [address] [facility], [place], [address], 03/25/2024 15:10:59 03/24/19 25 03/25/2024 COMP. METAB OLIC PANEL (14) creatinine 0.72 mg/dL 0.57-1 .00 Not Available [facility] ([facility]) [address] [facility], [place], [address], 03/25/2024 15:10:59 03/24/19 25 03/25/2024 COMP. METAB OLIC PANEL (14) eGFR 97 mL/mi n/1.7 3 >59 Not Available [facility] ([facility]) [address] [facility], [place], [address], 03/25/2024 15:10:59 03/24/19 25 03/25/2024 COMP. METAB OLIC PANEL (14) BUN/creatini ne ratio 19 9-23 Not Available [facility] ([facility]) [address] [facility], [place], [address], 03/25/2024 15:10:59 03/24/19 25 03/25/2024 COMP. METAB OLIC PANEL (14) sodium 141 mmol/ L 134-14 4 Not Available [facility] ([facility]) [address] [place], [address], 03/25/2024 15:10:59 03/24/19 25 03/25/2024 COMP. METAB OLIC PANEL (14) potassium 3.8 mmol/ L 3.5-5. 2 Not Available [facility] ([facility]) [address] [place], [address], 03/25/2024 15:10:59 03/24/19 25 03/25/2024 COMP. METAB OLIC PANEL (14) chloride 98 mmol/ L 96-106 Not Available [facility] ([facility]) [address] [place], [address], 03/25/2024 15:10:59 03/24/19 25 03/25/2024 COMP. METAB OLIC PANEL (14) carbon dioxide, total 26 mmol/ L Not Available [facility] ([facility]) [address] [place], [address], 03/25/2024 15:10:59 03/24/19 25 03/25/2024 COMP. METAB OLIC PANEL (14) calcium 9.4 mg/dL 8.7-10 .2 Not Available [facility] ([facility] [address] [facility] [place], [address], 03/25/2024 15:10:59 03/24/19 25 03/25/2024 COMP. METAB OLIC PANEL (14) protein, total 7.0 g/dL 6.0-8. 5 Not Available [facility] ([facility]) [address] [facility] [place], [address], 03/25/2024 15:10:59 03/24/19 25 03/25/2024 COMP. METAB OLIC PANEL (14) albumin 4.2 g/dL 3.8-4. 9 Not Available [facility] ([facility]) [address] [facility] [place], [address], 03/25/2024 15:10:59 03/24/19 25 03/25/2024 COMP. METAB OLIC PANEL (14) globulin, total 2.8 g/dL 1.5-4. 5 Not Available [facility] ([facility]) [address] [facility] [place], [address], 03/25/2024 15:10:59 03/24/19 25 03/25/2024 COMP. METAB OLIC PANEL (14) bilirubin, total 0.4 mg/dL 0.0-1. 2 Not Available [facility] ([facility]) [address] [facility] [place], [address], 03/25/2024 15:10:59 03/24/19 25 03/25/2024 COMP. METAB OLIC PANEL (14) alkaline phosphatase 132 IU/L 44-121 above high normal Not Available [facility] ([facility]) [address] [place], [address], 03/25/2024 15:10:59 03/24/19 25 03/25/2024 COMP. METAB OLIC PANEL (14) AST (SGOT) 23 IU/L 0-40 Not Available [facility] ([facility]) [address] [place], [address], 03/25/2024 15:10:59 03/24/19 25 03/25/2024 COMP. METAB OLIC PANEL (14) ALT (SGPT) 19 IU/L 0-32 Not Available [facility] ([facility]) [address] [place], [address], 03/25/2024 15:10:59 03/24/19 25 03/25/2024 IRON AND TIBC iron bind.cap.(TI BC) 357 ug/dL 250-45 0 Not Available [facility] ([facility]) [address] [place], [address], 03/25/2024 15:11:00 03/24/19 25 03/25/2024 IRON AND TIBC UIBC 273 ug/dL 131-42 5 Not Available [facility] ([facility]) [address] [place], [address], 03/25/2024 15:11:00 03/24/19 25 03/25/2024 IRON AND TIBC iron 84 ug/dL 27-159 Not Available [facility] ([facility]) [address] [place], [address], 03/25/2024 15:11:00 03/24/19 25 03/25/2024 IRON AND TIBC iron saturation 24 % 15-55 Not Available [facility] ([facility]) [address] [facility], [place], [address], 03/25/2024 15:11:00 03/24/19 25 03/25/2024 MARY TIN ferritin 167 NG/mL 15-150 above high normal Not Available [facility] ([facility]) [address] [facility], [place], [address], 03/25/2024 15:11:01 03/24/19 25 03/25/2024 CBC WITH DIFFE RENTI AL/PL ATELE T WBC 6.9 x10e3 /uL 3.4-10 .8 Not Available [facility] ([facility]) [address] [facility], [place], [address], 03/25/2024 15:11:02 03/24/19 25 03/25/2024 CBC WITH DIFFE RENTI AL/PL ATELE T RBC 4.77 x10e6 /uL 3.77-5 .28 Not Available [facility] ([facility]) [address] [facility], [place], [address], 03/25/2024 15:11:02 03/24/19 25 03/25/2024 CBC WITH DIFFE RENTI AL/PL ATELE T hemoglobin 12.8 g/dL 11.1-1 5.9 Not Available [facility] ([facility]) [address] [facility], [place], [address], 03/25/2024 15:11:02 03/24/19 25 03/25/2024 CBC WITH DIFFE RENTI AL/PL ATELE T hematocrit 41.2 % 34.0-4 6.6 Not Available [facility] ([facility]) [address] [facility], [place], [address], 03/25/2024 15:11:02 03/24/19 25 03/25/2024 CBC WITH DIFFE RENTI AL/PL ATELE T MCV 86 fL 79-97 Not Available [facility] ([facility]) [address] [facility], [place], [address], 03/25/2024 15:11:02 03/24/19 25 03/25/2024 CBC WITH DIFFE RENTI AL/PL ATELE T MCH 26.8 pg 26.6-3 3.0 Not Available [facility] ([facility]) [address] [facility], [place], [address], 03/25/2024 15:11:02 03/24/19 25 03/25/2024 CBC WITH DIFFE RENTI AL/PL ATELE T MCHC 31.1 g/dL 31.5-3 5.7 below low normal Not Available [facility] ([facility]) [address] [facility], [place], [address], 03/25/2024 15:11:02 03/24/19 25 03/25/2024 CBC WITH DIFFE RENTI AL/PL ATELE T RDW 13.1 % 11.7-1 5.4 Not Available [facility] ([facility]) [address] [facility], [place], [address], 03/25/2024 15:11:02 03/24/19 25 03/25/2024 CBC WITH DIFFE RENTI AL/PL ATELE T platelets 383 x10e3 /uL 150-45 0 Not Available [facility] ([facility]) [address] [place], [address], 03/25/2024 15:11:02 03/24/19 25 03/25/2024 CBC WITH DIFFE RENTI AL/PL ATELE T neutrophils 49 % notest ab. Not Available [facility] ([facility]) [address] [place], [address], 03/25/2024 15:11:02 03/24/19 25 03/25/2024 CBC WITH DIFFE RENTI AL/PL ATELE T lymphs 37 % notest ab. Not Available [facility] ([facility]) [address] [place], [address], 03/25/2024 15:11:02 03/24/19 25 03/25/2024 CBC WITH DIFFE RENTI AL/PL ATELE T monocytes 9 % notest ab. Not Available [facility] ([facility]) [address] [place], [address], 03/25/2024 15:11:02 03/24/19 25 03/25/2024 CBC WITH DIFFE RENTI AL/PL ATELE T eos 2 % notest ab. Not Available [facility] ([facility]) [address] [place], [address], 03/25/2024 15:11:02 03/24/19 25 03/25/2024 CBC WITH DIFFE RENTI AL/PL ATELE T basos 1 % notest ab. Not Available [facility] ([facility]) [address] [place], [address], 03/25/2024 15:11:02 03/24/19 25 03/25/2024 CBC WITH DIFFE RENTI AL/PL ATELE T neutrophils (absolute) 3.4 x10e3 /uL 1.4-7. 0 Not Available [facility] ([facility]) [address] [place], [address], 03/25/2024 15:11:02 03/24/19 25 03/25/2024 CBC WITH DIFFE RENTI AL/PL ATELE T lymphs (absolute) 2.5 x10e3 /uL 0.7-3. 1 Not Available [facility] ([facility]) [address] [place], [address], 03/25/2024 15:11:02 03/24/19 25 03/25/2024 CBC WITH DIFFE RENTI AL/PL ATELE T monocytes(ab solute) 0.6 x10e3 /uL 0.1-0. 9 Not Available [facility] ([facility]) [address] [place], [address], 03/25/2024 15:11:02 03/24/19 25 03/25/2024 CBC WITH DIFFE RENTI AL/PL ATELE T eos (absolute) 0.2 x10e3 /uL 0.0-0. 4 Not Available [facility] ([facility]) [address] [place], [address], 03/25/2024 15:11:02 03/24/19 25 03/25/2024 CBC WITH DIFFE RENTI AL/PL ATELE T baso (absolute) 0.1 x10e3 /uL 0.0-0. 2 Not Available [facility] ([facility]) [address] [facility], [place], [address], 03/25/2024 15:11:02 03/24/19 25 03/25/2024 CBC WITH DIFFE RENTI AL/PL ATELE T immature granulocytes 2 % notest ab. Not Available [facility] ([facility]) [address] [facility], [place], [address], 03/25/2024 15:11:02 03/24/19 25 03/25/2024 CBC WITH DIFFE RENTI AL/PL ATELE T immature grans (abs) 0.1 x10e3 /uL 0.0-0. 1 Not Available [facility] ([facility]) [address] [place], [address], 03/25/2024 15:11:02 11/05/19 24 11/05/2023 MAMMO , scree massimo, bilat eral No observ ation record ed. [facility] [address], [place], [address], 11/06/2023 10:13:20 Result Notes None recorded. Problems Name Problem SNOMED Code Status Onset Date Resolution Date Notes Provider Name and Address Organization Details Recorded Time Low back pain 557157747 Active Akila barber, [employer]-BC Attn: Accountin g,[address], [place], [address], [place] [facility] 5 12:19:39 Constipa tion 38002340 Completed 06/25/2019 SYEDA PAZ NP-C Attn: Jayla g,[address], [place], [address], [place] [facility] 0 16:22:32 [facility] hyperten cherry 09833446 Active Akila Moran elisabeth, [facility] Attn: Accountratna g,[address], [place], [address], [place] [facility] 5 11:32:11 Prediabe kyra 740284086 Active 2020 BRYN GUERREROC Attn: Accountratna g,[address], [place], [address], [place] [facility] 1 17:11:01 Menopaus e present 051765189 Active 2021 MANUELITO LOVE Attn: Accountratna g,[address], [place], [address], [place] [facility] 2 09:35:28 Pain of left knee joint 02347856123 4107 Active 2021 MANUELITO LOVE Attn: Accountratna rizzo,[address], [place], [address], [place] [facility] 2 13:34:10 Obesity 150832099 Active 2021 MANUELITO LOVE Attn: Accountratna g,[address], [place], [address], [place] [facility] 2 13:34:17 Menopaus al flushing 290280684 Active 2021 MANUELITO LOVE Attn: Accountin g,[address], [place], [address], [place] [facility] 2 13:34:20 Effusion of joint of left knee 32012126184 9105 Active 2021 MANUELITO LOVE Attn: Accountratna rizzo,[address], [place], [address], [place] [facility] 2 13:34:22 Hyperlip idemia 66930478 Active Raymond Trinh MA null, [place] - [facility] 6 12:54:28 Anxiety 33058892 Active 2024 MANUELITO LOVE Attn: Jayla rizzo,[address], [place], [address], [place] [facility] 5 14:59:30 Type 2 diabetes mellitus 78639751 Active 2024 MANUELITO LOVE Attn: Jayla rizzo,[address], [place], [address], [place] [facility] 5 14:59:31 Skin lesion 25634688 Completed 06/04/2018 MERLE GURERERO Attn: Jayla rizzo,[address], [place], [address], [place] [facility] 9 15:18:46 Chest pain 50260697 Completed 06/25/2019 MERLE GUERRERO Attn: Jayla rizzo,[address], [place], [address], [place] [facility] 0 16:22:29 Disorder associat ed with menstrua tion AND/OR menopaus e 489217284 Completed 06/25/2019 MERLE GUERRERO Attn: Jayla rizzo,[address], [place], [address], [place] [facility] 0 16:22:44 Increase d frequenc y of urinatio n 453720476 Completed 06/25/2019 MERLE GUERRERO Attn: Jayla rizzo,[address], [place], [address], [place] [facility] 0 16:22:41 Diabetes mellitus 04932636 Completed 06/04/2018 Removal Reason: Patient denies conditio n MERLE GUERRERO Attn: Jayla rizzo,[address], [place], [address], [place] - [facility] 9 15:19:00 Impacted cerumen 12400532 Completed 06/25/2019 MERLE GUERRERO Attn: Accountratna g,[address] [facility], [place], [address], [place] [facility] 0 16:22:38 Menorrha desiree 694926694 Active Gill Walter MA null, [place] - [facility] 6 15:21:58 Corneal abrasion 35681062 Completed 06/25/2019 MERLE GUERRERO Attn: Jayla rizzo,[address], [place], [address], [facility] - [facility] 0 16:22:34 Problem Notes None recorded. Procedures Surgical History Date Name Laterality Status Provider Name and Address Organization Details Recorded Time 6 Cerumen Removal completed Akila ABDIRIZAK Moya-AKIRA Attn: Accounting,[address], [place], [address], [facility] - [facility] 07/12/2015 11:20:23 Imaging Results None recorded. Procedure Notes None recorded. Medical Equipment None Reported. Allergies No known drug allergies Medications Name Sig Start Date Stop Date Status Note LastModified by Organization Details LastModified Time cyclobenzap rine 10 mg tablet Take 1 tablet 3 times a day by oral route as needed. 09/05 completed Not Available Not Available Not Available venlafaxine ER 37.5 mg capsule,ext ended release 24 hr Take 1 capsule every day by oral route at bedtime for 90 days. 2024 active Not Available Not Available Not Avai lable venlafaxine ER 75 mg capsule,ext ended release 24 hr TAKE 1 CAPSULE BY MOUTH EVERY DAY 03/21 completed Not Available Not Available Not Available atorvastati n 20 mg tablet Take 1 tablet every day by oral route at bedtime for 90 days, for high cholester ol. 2024 active Not Available Not Available Not Avai lable atorvastati n 10 mg tablet TAKE ONE TABLET BY MOUTH ONCE DAILY 09/05 completed Not Available Not Available Not Available ibuprofen 800 mg tablet TAKE 1 TABLET BY MOUTH 3 TIMES A DAY WITH MEALS FOR 14 DAYS 06/23 completed Not Available Not Available Not Available valacyclovi r 1 gram tablet 09/29 completed Not Available Not Available Not Available naltrexone 50 mg tablet TAKE 1 TABLET BY MOUTH EVERY DAY 03/24 completed Not Available Not Available Not Available lisinopril 20 mg tablet TAKE ONE TABLET BY MOUTH ONCE DAILY 11/10 completed Not Available Not Available Not Available Medrol (Trevin) 4 mg tablets in a dose pack take as directed 06/04 completed Not Available Not Available Not Available lovastatin 40 mg tablet Take 1 tablet every day by oral route. 12/23 completed Not Available Not Available Not Available Diflucan 150 mg tablet Take 1 tablet every day by oral route. 11/10 completed Not Available Not Available Not Available thiamine HCl (vitamin B1) 100 mg tablet Take 1 tablet every day by oral route for 90 days. 2024 active Not Available Not Available Not Avai lable hydroxyzine pamoate 50 mg capsule TAKE 1 CAPSULE BY MOUTH EVERY 8 HOURS NEEDED FOR ANXIETY active Not Available Not Available No t Available metronidazo le 500 mg tablet Take 2 tablets now, take 2more tablets in 2hours 12/28 completed Not Available Not Available Not Available simvastatin 40 mg tablet TAKE ONE TABLET BY MOUTH ONCE DAILY 10/31 completed Not Available Not Available Not Available ondansetron 8 mg disintegrat ing tablet TAKE 1 TABLET ORALLY EVERY 4 - 6 HOURS NEEDED FOR NAUSEA AND VOMITING 03/24 completed Not Available Not Available Not Available Vitamin tablet Take 1 tablet every day by oral route. 12/28 completed Not Available Not Available Not Available ciclopirox 8 % topical solution APPLY TO THE AFFECTED AREA(S) BY TOPICAL ROUTE ONCE DAILY PREFERABL Y AT BEDTIME OR 8 HOURS BEFORE WASHING 2023 active Not Available Not Available Not Avai lable trazodone 100 mg tablet TAKE 1 TO 2 TABLETS BY MOUTH NIGHTLY NEEDED 03/24 completed Not Available Not Available Not Available ciprofloxac in 0.3 % eye drops INSTILL 1 DROP INTO AFFECTED EYE(S) BY OPHTHALMI C ROUTE EVERY 2 HOURSWHIL E AWAKE FOR 2 DAYS THEN 1 DROP EVERY 4 HRS WHILE AWAKE FOR 5 DAYS 05/16 completed Not Available Not Available Not Available amlodipine 10 mg tablet TAKE 1 TABLET BY MOUTH EVERY DAY 09/20 completed Not Available Not Available Not Available cephalexin 500 mg capsule TAKE 1 CAPSULE BY MOUTH EVERY 12 HOURS FOR 5 DAYS 06/23 completed Not Available Not Available Not Available pantoprazol e 40 mg tablet,chris yed release Take 1 tablet every day by oral route for 30 days. 2023 active Not Available Not Available Not Avai lable simvastatin 20 mg tablet 09/29 completed Not Available Not Available Not Available oseltamivir 75 mg capsule TAKE 1 CAPSULE BY MOUTH EVERY 12 HOURS FOR 5 DAYS 03/24 completed Not Available Not Available Not Available tobramycin 0.3 % eye drops INSTILL 1 DROP INTO AFFECTED EYE(S) BY OPHTHALMI C ROUTE EVERY 4 HOURS 12/28 completed Not Available Not Available Not Available lisinopril 10 mg tablet Take 1 tablet every day by oral route. 06/04 completed Not Available Not Available Not Available lidocaine 5 % topical patch PLACE 1 PATCH ON THE SKIN DAILY REMOVE & DISCARD PATCH WITHIN 12 HOURS OR DIRECTED BY MD active Not Available Not Available No t Available hydrochloro thiazide 12.5 mg capsule 12/28 completed Not Available Not Available Not Available lisinopril 30 mg tablet TAKE 1 TABLET BY MOUTH EVERY DAY 08/07 completed Not Available Not Available Not Available oxybutynin chloride ER 5 mg tablet,exte nded release 24 hr Take 1 tablet every day by oral route. 12/28 completed Not Available Not Available Not Available sertraline 25 mg tablet Take 1 tablet every day by oral route. 06/24 completed Not Available Not Available Not Available lisinopril 5 mg tablet TAKE ONE TABLET BY MOUTH ONCE DAILY 02/12 completed Not Available Not Available Not Available acyclovir 200 mg capsule 1 cap 5 x day x 10d 09/29 completed Not Available Not Available Not Available hydrochloro thiazide 25 mg tablet active Not Available Not Available No t Available Vitamin D2 1,250 mcg (50,000 unit) capsule Take 1 capsule every week by oral route. 08/14 completed Not Available Not Available Not Available norethindro ne (contracept akash) 0.35 mg tablet Take 1 tablet every day by oral route. 09/05 completed Not Available Not Available Not Available ketoconazol e 2 % topical cream APPLY TO THE AFFECTED AREA(S) BY TOPICAL ROUTE ONCE DAILY x 6 weeks 2023 active Not Available Not Available Not Avai lable lisinopril 40 mg tablet TAKE 1 TABLET BY MOUTH EVERY DAY 09/17 completed Not Available Not Available Not Available sertraline 50 mg tablet TAKE 1 TABLET BY MOUTH EVERY DAY FOR 30 DAYS 03/24 completed Not Available Not Available Not Available naproxen 500 mg tablet TAKE 1 TABLET BY MOUTH 2 TIMES A DAY NEEDED FOR PAIN. active Not Available Not Available No t Available losartan 100 mg-hydrochl orothiazide 12.5 mg tablet Take 1 tablet every day by oral route in the morning for 90 days, for high blood pressure. 2024 active Not Available Not Available Not Avai lable iron OTC iron ie vitamin, take 1 daily 07/13 completed Not Available Not Available Not Available calcium 600 mg (as carbonate)- vitamin D3 10 mcg (400 unit) tablet Take 1 tablet every day by oral route for 90 days. 2023 active Not Available Not Available Not Avai lable hydrochloro thiazide 12.5 mg tablet Take 1 tablet every day by oral route. 12/23 completed Not Available Not Available Not Available cholecalcif criss (vitamin D3) 1,250 mcg (50,000 unit) capsule TAKE 1 CAPSULE BY MOUTH EVERY WEEK WITH MEAL FOR 90 DAYS 06/23 completed Not Available Not Available Not Available Vitamin D3 125 mcg (5,000 unit) tablet Take 1 tablet every day by oral route for 30 days. 2023 active Not Available Not Available Not Avai lable Vitals Date Recorded Respiratory rate Provider Name a nd Address Organization Details Last Updated DateTime 03/21/2022 18 /min MANUELITO BLANDON Attn: Accounting,[address] [facility], [place], [address], [place] - [place] 03/21/2022 15:42:32 Date Recorded Body height Oxygen saturation Oxygen saturation in Arterial blood by Pulse oximetry Body temperature Body mass index (BMI) Body weight Heart rate Systolic And Diastolic Provider Name and Address Organization Details Last Updated DateTime 3 162.56 cm 97 % 97 % 98.1 [degF] 36.9 kg/m2 37465.3 6 g 87 /min 120/70 mm[Hg] Gladys Ruiz MA [facility] 3 15:32:10 Date Recorded Body height Body mass index (BMI) Body weight Heart rate Oxygen saturation Oxygen saturation in Arterial blood by Pulse oximetry Systolic And Diastolic Provider Name and Address Organization Details Last Updated DateTime 5 162.56 cm 36.6 kg/m2 62701.1 7 g 84 /min 94 % 94 % 122/79 mm[Hg] Gladys Ruiz MA [facility] 5 14:24:32 Date Recorded Body height Body mass index (BMI) Body weight Heart rate Oxygen saturation Oxygen saturation in Arterial blood by Pulse oximetry Systolic And Diastolic Provider Name and Address Organization Details Last Updated DateTime 4 162.56 cm 36.7 kg/m2 65099.7 7 g 89 /min 91 % 91 % 125/84 mm[Hg] Gladys Ruiz MA [place] Bib[facility] 4 12:05:11 Date Recorded Body height Body mass index (BMI) Body weight Heart rate Oxygen saturation Oxygen saturation in Arterial blood by Pulse oximetry Systolic And Diastolic Provider Name and Address Organization Details Last Updated DateTime 4 162.56 cm 36.6 kg/m2 53467.8 7 g 78 /min 98 % 98 % 151/93 mm[Hg] FORREST Mak [facility] 4 16:03:01 Date Recorded Body height Body mass index (BMI) Body weight Heart rate Respiratory rate Oxygen saturation Oxygen saturation in Arterial blood by Pulse oximetry Systolic And Diastolic Provider Name and Address Organization Details Last Updated DateTime 4 162.56 cm 36.4 kg/m2 15703.5 8 g 100 /min 18 /min 96 % 96 % 119/77 mm[Hg] Megan Lo [place] - [facility] 15:27:04 Social History Question Answer Notes LastModified by Organizat ion Details LastModified Time Tobacco Smoking Status Current Every Day Smoker started smoking 2008 MANUELITO LOVE Attn: [facility],[address] [place], [address], [facility] - [facility] 06/24/2023 12:19:37 Do You Have An Advance Directive? No Information not available 08/14/2021 Is Blood Transfusion Acceptable In An Emergency? No [email or web address] Information not available 10/15/2021 What Is Your Level Of Caffeine Consumption? None Information not available 09/17/2021 In The 14 Days Before Symptom Onset, Have You Had Close Contact With A Laboratory-confi rmed COVID-19 While That Case Was Ill? No Information not available 08/14/2021 In The 14 Days Before Symptom Onset, Have You Had Close Contact With A Person Who Is Under Investigation For COVID-19 While That Person Was Ill? No Information not available 08/14/2021 Have You Been To An Area Known To Be High Risk For COVID-19? No Information not available 08/14/2021 Live Alone Or With Others? With Others Information not available 06/25/2019 Do You Have A Medical Power Of Line Appliance Assembler? No [email or web address] Information not available 10/15/2021 What Was The Date Of Your Most Recent Tobacco Screening? 03/24/2024 Information not available 03/24/2024 What Is Your Current Pack Years? 10-19packy ears Information not available 06/24/2023 Do You Have Smoke And Carbon Monoxide Detectors In Your Home? Yes Information not available 08/14/2021 Are You Passively Exposed To Smoke? Yes Information not available 08/14/2021 How Much Tobacco Do You Smoke? 0.5 PPD Information not available 06/24/2023 On What Date Was Tobacco Cessation Counseling Provided? 03/24/2024 Information not available 03/24/2024 How Many Years Have You Smoked Tobacco? 10 [email or web address] Information not available 12/23/2018 Sex: Female Functional Status Question Answer Note LastModified by Organizat ion Details LastModified Time Do you or have you ever used any other forms of tobacco or nicotine? No [email or web address] Information not available 05/30/2020 What is your level of alcohol consumption? Moderate drinks daily Information not available 06/24/2023 Are you able to care for yourself? Yes Information not available 06/25/2019 Mental Status None recorded. Family History Relationship Description Onset Age of this Age Resolved Age Notes LastModified by Organization Details LastModified Time Mother Hypertensive disorder [email or web address] Not available 2015 10:46:29 Father Diabetes mellitus [email or web address] Not available 2015 10:46:29 Medical History Condition Response Coronary Artery Disease N Other N Atrial Fibrillation N High Blood Pressure Y Kidney or Bladder Problems N Thyroid Problems N GI Problems N Depression N COPD N Blood Clots N Skin Problems N Anemia N Heart Attack (PR) N Anxiety Disorder N Diabetes N Muscle, Joint, or Bone Problems N Seizures/Epilepsy N Acid Reflux (GERD) N Cancer N Stroke N Asthma N Allergies N ADHD N Substance Abuse N High Cholesterol N Hepatitis N Liver Disease N Headaches N Heart Failure N Osteoporosis N Gynecological History Statement/Question Response If Post Menopausal, Age at Menopause Date of LMP Obstetrics History GPAL:G 2 P 2 0 0 2 Type Value Multiple Births 0 Full Term 2 Induced 0 Spontaneous 0 Premature 0 Living 2 Ectopics 0 Total 2 Immunizations Vaccine Type Date Status Note Provider Nam e and Address Organization Details Recorded Time COVID-19 vaccine, vector-nr, rS-Ad26, PF, 0.5 mL 1 completed MERLE GUERRERO Attn: Accounting,[address], [place], [address], [facility] 01/25/2021 15:47:30 Influenza, split virus, quadrivalent, preservative 6 completed Not Available [facility] 03/06/2019 02:32:56 Tdap 5 completed Not Available [facility] 03/06/2019 02:32:38 Influenza, split virus, quadrivalent, preservative 9 completed Not Available [facility] 03/06/2019 02:46:37 Pneumococcal conjugate PCV20, polysaccharide [id number] conjugate, adjuvant, PF 4 completed MANUELITO LOVE Attn: Accounting,[address] [facility], [place], [address], [facility] - [facility] 09/17/2023 21:01:37 Past Encounters Encounter ID Performer Location Encounter Start Date Encounter Closed Date Diagnosis/Indication Diagnosis SNOMED-CT Code Diagnosis ICD10 Code Diagnosis Note [id number] Carolynn Chan MD [address] [address] 04/06/2014 11:26:39 04/06/2014 12:27:06 Adult health examination 233868701 healthy lifestyle reviewed Low back pain 988835126 try to get PT Constipation 35030480 tr y probiotics and Miralax work at high fiber diet and more water Essential hypertension 38204711 cont meds [id number] Carolynn Chan MD [address] [address] 06/23/2014 11:42:54 06/23/2014 12:52:55 Skin lesion 65718336 get herpes cx and start Valtrex--d iscussed w/ pt use zinc oxide for skin protection [id number] Carolynn Chan MD [address] [address] 10/18/2014 11:08:03 10/18/2014 12:23:17 Essential hypertension 53007738 will decrease HCTZ to 12.5, cont Lisinopril 5mg Chest pain 83014063 EKG ok--will proceed w/ stress test Disorder a ssociated with menstruation AND/OR menopause 473468341 try otc estrogen such as Estroven [id number] Carolynn Chan MD [address] [address] 02/01/2015 10:37:27 02/01/2015 12:37:23 Essential hypertension 81903320 I10 reviewed lab from 11/01--ok-- but needs to work on diet--heal thier choices--g ain 12# in 3mo cont meds Increased frequency of urination 304462994 R35.0 will get urine cx drink more water will try low dose ditropan [id number] Carolynn Chan MD [facility] [address] [address] 07/12/2015 10:41:09 07/12/2015 12:42:24 Adult health examination 936442285 Z00.01 healthy lifestyle reviewed. exercise and good diet Impacted cerumen 6454901 6 H61.23 ear irrigation . reviewed prevention Menorrhagia 651875655 N9 2.0 concerned about anemia--wi ll check CBC. will try progestero ne oc's to try to slow down periods. if that does not work come back for pelvic/ poss pelvic US. sounds like she is going through menopause- -hopefully can diminish flow till that happens. [id number] Carolynn Chan MD [address] [address] 08/01/2015 10:12:14 08/01/2015 11:13:45 Adult health examination 133665076 Z00.01 cont oc's--try to get better at taking meds [id number] Alejandro Barnhart MD [address] [address] [address] 10/16/2015 12:06:40 10/19/2015 03:48:24 Corneal abrasion 26334652 S05.01XA start drops. rst eye--ice prn--nsaid prn. if no better in 48hr [id number] Xiao Vale MD [address] [address] 12/08/2015 10:57:55 12/11/2015 08:56:59 Acute back pain with sciatica 063789313 M54.41 nsaids, muscle relaxers prn. back and hip stretches reg--hando ut [id number] Xiao Vale MD [address] [address] 12/29/2015 11:03:13 01/01/2016 12:36:56 Essential hypertension 84121047 I10 cont meds--bp a little high--work at salt intake. lab soon Pain of hip region 94403 002 M25.551 working at getting insurance coverage then will get xray of hip and back [id number] KENROY JACK NP [address] [address] 09/05/2016 10:24:20 09/18/2016 12:13:37 Essential hypertension 25889155 I10 - BP above goal range today at 130/104 and 128/92 on repeat - No red flag symptoms - Last lab 12/2015 - will repeat in Dec due to insurance constraint s - Lisinopril 5mg daily ordered - has not had a dose in 2-3 days - encouraged to take consistent ly at home - Encouraged making changes to diet and exercise regimen - RTC in Dec to recheck BP and discuss lab Hyperlipidemia 89181025 E78.5 - Last lab 12/2015 - will repeat lab 12/2016 due to insurance constraint s - Has not taken atorvastat in in several months due to cost - will start on lovastatin 40mg daily (on $ supply list at [facility]) - RTC in Dec to discuss lab Chest pain 76306135 R07. 9 - Transient and without associated symptoms - May be related to stress - Stress test 10/2014 negative - Will work on controllin g BP and will restart statin - Discussed red flag symptoms - go to ED if they present or if chest pain is persistent - RTC as needed [id number] KENROY JACK NP [address] [address] 09/25/2016 14:40:10 09/30/2016 11:04:14 Conjunctivitis 1888492 H10.9 - Symptomati c x2 days - Will treat with cipro gtts daily - RTC if symptoms persist or worsen [id number] Xiao Vale MD [address] [address] 06/19/2017 16:22:29 06/24/2017 18:24:03 Hyperlipidemia 02633694 E78.5 - Lab reviewed - Total cholestero l and LDL elevated - Has not been taking lovastatin - poorly compliant with medication - refilled today - Would like to use OTC remedies instead of medication - encouraged to continue medication at this time - Discussed diet and exercise regimens - RTC in 6 months with lab prior Hypertensive disorder 38 362912 I10 - BP above goal range today - No red flag symptoms - Lab reviewed - Has not been taking BP medication - poorly compliant with medication - refilled today - Encouraged monitoring BP at home - Would like patient to return in 4 weeks for BP check, but she refuses and plans to come back in 6 months - RTC if BP persistent ly above 140/90 [id number] MERLE Davis [address] [address] 02/12/2018 14:07:21 02/18/2018 12:03:38 Essential hypertension 75535979 I10 -has not been at goal for her last couple visits, not always compliant with medication s- increase lisinopril to 10 mg daily-BP goal less than 140/90 -discussed low sodium diet-encou raged smoking cessation [id number] Mae Cool MD [address] [address] 06/04/2018 14:36:49 06/05/2018 10:11:26 Essential hypertension 94979849 I10 - Stable on Lisinopril - Continue medication as prescribed - At goal <140/90 Constipation 09446771 K5 9.00 - Increase fiber- Continue stool softener- Contact office if symptoms worsen or do not improve Depression screening 171 145136 Z13.31 - No symptoms of depression Edema of l ower extremity 616945839 R60.0 - Start HCTZ- Contact office if symptoms do not improve or worsen- Try to find periods at work to walk around or stretch legs- Elevate above level of heart when at home resting Hyperlipidemia 90149126 E78.49 - Never started statin medication - Advised we will draw labs to evaluate risk Adult heal th examination 342703060 Z00.00 - Labs ordered today- Concerned with cost for colonoscop y due to no insurance- iFOBT kit provided to patient- Will call [facility] for registrati on to get mammogram [id number] Mae Cool MD [address] [address] 11/05/2018 12:34:36 11/06/2018 10:58:24 Diabetes mellitus screening 562039922 Z13.1 Hyperlipidemia 59967367 E78.49 - Never started statin medication - Advised we will draw labs to evaluate risk Thyroid di sorder screening 803585113 Z13.29 [id number] Mae Cool MD [address] [address] 12/23/2018 14:09:39 01/04/2019 09:49:52 Screening for malignant neoplasm of breast 456520715 Z12.39 - Mammogram order provided to patient Active or passive immunization 191179198 Z23 - Flu shot provided in office today Tobacco user 217558284 Z 72.0 - Patient is smoking a pack every 2 days- Patient reports job is stressful- Not ready to stop at this time Screening for malignant neoplasm of colon 689730183 Z12.11 - Patient would like a provider affiliated with [facility]- Colonoscop y referral provided Depressive disorder 4938 9000 F32.9 - Patient suffering from depression due to some recent stressors and finances- Discussed options with patient and she would like to start medication - F/U one month to evaluate effectiven ess- Denies SI or HI. Seek care for SI or HI Essential hypertension 70542298 I10 - Stable on Lisinopril - Continue medication as prescribed - Almost at goal <120/80- Will check again when patient returns for medication folllow up in one month Hyperlipidemia 86558376 E78.49 - Never started statin medication - ASCVD risk is low- Discussed low fat diet/exerc ise- Will check again in 6 months [id number] MERLE GUERRERO [facility] [address] [address] 06/25/2019 15:12:47 06/28/2019 09:58:25 Hyperlipidemia 60990986 E78.49 - Never started statin medication - ASCVD risk is low- Discussed low fat diet/exerc ise- Will check again when patient returns for PAP testing Essential hypertension 14351859 I10 - Stable on Lisinopril - Continue medication as prescribed - Will check again when patient returns for PAP testing Screening mammography 24 122071 Z12.31 - Last one was 2016- Discussed importance of completing yearly Screening for malignant neoplasm of colon 763276100 Z12.11 - Patient never completed colonoscop y- Agreeable to cologuard Depression screening 171 700730 Z13.31 - No symptoms of depression [id number] Mae Cool MD [address] [address] 11/02/2019 15:03:43 11/03/2019 11:00:37 Pain of right hip joint 7559429154 02836 M25.551 - Patient reports right hip pain for about a year- No injury- Feels it slipping intermitte ntly- Will send for xray Gynecologi c examination 29959514 Z01.419 - Last PAP completed in 2016- Sample collected today for PAP- Discussed overdue mammogram. Patient will schedule- No longer has a menstrual cycle Candidiasis of vagina 72 606377 B37.3 - Candidas noted during PAP testing- Patient wears pants at work and sweats during day- Will send medication - Contact office if no improvemen t in symptoms Hyperlipidemia 86722268 E78.49 - Labs completed today Essential hypertension 44857302 I10 - Patient has not taken medication for the past two days due to forgetting - She will take medication and return next week for BP check- She denies problems with chest pain, SOB, palpitatio ns, edema or dizziness. Seek care for these symptoms [id number] Mae Cool MD [address] [address] 11/11/2019 12:19:06 11/15/2019 12:36:39 Essential hypertension 32318109 I10 - Patient has not taken medication for the past two days due to forgetting - She will take medication and return next week for BP check- She denies problems with chest pain, SOB, palpitatio ns, edema or dizziness. Seek care for these symptoms 136/90 [id number] Mae Cool MD [address] [address] 12/02/2019 12:01:46 12/03/2019 11:54:23 Essential hypertension 73887495 I10 - Patient has not taken medication for the past two days due to forgetting - She will take medication and return next week for BP check- She denies problems with chest pain, SOB, palpitatio ns, edema or dizziness. Seek care for these symptoms [id number] Mae Cool MD [address] [address] 05/30/2020 12:47:59 05/31/2020 07:44:00 Hyperlipidemia 94311459 E78.49 - Patient manages with lifestyle - Will return for fasting labs Essential hypertension 48124415 I10 - Patient manages with Lisinopril - She denies problems with chest pain, SOB, palpitatio ns, edema or dizziness - Will check BP when she returns for labs Depression screening 171 141363 Z13.31 - No symptoms of depression Screening for malignant neoplasm of breast 277838031 Z12.39 - Spoke to patient about her being due for her mammogram - Will provide [facility] informatio n when she returns for labs Screening for malignant neoplasm of colon 781945910 Z12.11 - Patient never completed colonoscop y - Agreeable to cologuard [id number] Mae Cool MD [address] [address] 08/22/2020 10:33:14 08/23/2020 14:27:32 Hyperlipidemia 24792998 E78.49 - Patient manages with lifestyle - Will return for fasting labs Essential hypertension 27968905 I10 - Patient manages with Lisinopril - She denies problems with chest pain, SOB, palpitatio ns, edema or dizziness - Will check BP when she returns for labs [id number] Cyndie driscoll MD [address] [address] 01/25/2021 15:17:44 01/25/2021 18:34:17 Essential hypertension 82573941 I10 - Patient reports compliance with Lisinopril - Denies problems with chest pain, SOB, palpitatio ns, edema or dizziness- Elevated in office today- She reports she is under a lot of stress right now. She has to move out of her house- She does continue to smoke- She refuses to increase her medication at this time- Patient was previously on HCTZ, but did not tolerate- Discussed risk of potential stroke and patient verbalized understand ing and refuses increase in medication - She will return in 3 months for a blood pressure follow up Muscle pain 99750766 M79 .10 - Patient reports muscle cramps in her hands and back- Will check labs- Advised to increase her water intake- She can try OTC magnesium Increased frequency of urination 066583943 R35.0 - Patient reports increased urinary frequency- A1C consistent with prediabete s- Advised patient could be due to her consuming beer in the evening [id number] Cyndie driscoll MD [address] [address] 08/07/2021 14:46:10 08/08/2021 09:13:49 Prediabetes 488572377 R73.03 - A1C remains consistent with 5.9%- Discussed with patient Hyperlipidemia 41162663 E78.49 - Patient manages with lifestyle- Will return for fasting labs Hypertensive disorder 38 772440 I10 - Patient reports compliance with Lisinopril - Denies problems with chest pain, SOB, palpitatio ns, edema or dizziness- She reports is under a lot of stress right now- BP elevated in office- Will increase Lisinopril from 30mg to 40mg- Patient previously could not tolerate HCTZ- Will assess BP again when patient returns for labs Screening mammography 24 658352 Z12.31 - Last one was 2015- Patient did not want to discuss today. She reports she has a lot going on right now Screening for malignant neoplasm of colon 243186984 Z12.11 - Patient did not want to discuss today. She reports she has a lot going on right now Obesity 411693369 E66.9 - Patient is under a lot of stress right now- She has gained 4 pounds since last visit Depression screening 171 208467 Z13.31 - Negative depression screening [id number] MANUELITO LOVE [facility] [address] [place] [address] 08/14/2021 13:51:14 08/17/2021 14:24:54 Screening mammography 94114295 Z12.31 patient [facility] Smoker 81589562 F17.200 advised quitting Vitamin D deficiency 347 63611 E55.9 Obesity 933230014 E66.9 38.8 Menopause present 737454 006 N95.1 start vitamin D and calcium Hyperlipidemia 75291470 E78.5 08/22/2020 tc 248, HDL 65, LDL 163 Essential hypertension 15609732 I10 BP not controlled today, 172/100. switching lisinopril to amlodipine . BP check in one week. BP log from home. denies cp, sob , [place] Advised to check BP regularly with a goal of <140/90, if BP consistent ly >140/90, advised to contact clinicDisc ussed DASH dietAdvise d weight loss and diet is best way to control BPAdvised 30 minutes of exercise minimum dailyAdvis ed tobacco, alcohol, caffeine all increase BPAdvised goal for BP is <140/90 Menopausal flushing 1984 48714 N95.1 patient reports dome stress and also menopausal flushing. we disucssed venlafaxin e in detail and at this time would like to initiate treatment. - advised counseling -Patient was educated on his prescribed medication s, rationale for medication s, dosing indication s, adverse reactions, black box warning, -Call center with questions/ concerns. Go to ER or call 911 for crisis (e.g., suicidal behaviors, suicidal ideations, intent or plan emerge). Additional ly, patient has suicide hotline #. - f/u one month - call with questions [phone] MANUELITO LOVE [facility] [address] [place] [address] 08/17/2021 09:28:01 08/21/2021 09:08:02 [id number] Tomas Cobb MD [facility] [address] [place] [address] 09/17/2021 13:56:54 09/19/2021 12:32:37 Pain of left knee joint 8480316243 41347 M25.562 Left knee pain following fall onto concrete 1 day ago.Unable to ambulate since fallPain with weightbear ing. No pain on palpation. PE: no obvious deformity, no tenderness on palpation, full ROM. left LE edema > right LE edema.outp atient XR. -will inform patient of results when receivedCo ntinue with RICE treatment. Recommende d patient take Aleve or ibuprofen to help with inflammati onProvided work note allowing patient to rest until 09/19.Follow -up as needed. Essential hypertension 99310459 I10 BP today 162/104 with recent associated elevated BP headachesD enies worst headache of life, chest pain, vision changes, shortness of breath, and numbness/t ingling.Pt does not check BP at home.Pt has been on amlodipine 10 mg for 2 weeks which caused bilateral lower extremity swelling which was intolerabl e.Start losartan 100 mg and HCTZ 12.5 mg combinatio n pill for pt compliance .Educated patient on warning signs and symptoms to present to ED - she voiced understand ing.Follow -up in 1 week for BP check [id number] MANUELITO LOVE [facility] [address] [place] [address] 09/20/2021 12:00:15 09/21/2021 09:15:13 Pain of left knee joint 1477298119 00553 M25.562 Left knee pain following fall onto concrete 4 days agoUnable to ambulate since fallPain with weightbear ing. No pain on palpation. PE: no obvious deformity, no tenderness on palpation, full ROM. left LE edema > right LE edema.outp atient XR. -will inform patient of results when receivedCo ntinue with RICE treatment. Recommende d patient take Aleve or ibuprofen to help with inflammati onProvided work note allowing patient to rest until 09/25.Follow -up as needed. Essential hypertension 55952858 I10 BP today 150/90 . she stopped losartan-h cz due to feeling sleepy. encouraged to continue and allow body to get used to medication . f/u one week.Denie s worst headache of life, chest pain, vision changes, shortness of breath, and numbness/t ingling.Pt does not check BP at home.Educa emre patient on warning signs and symptoms to present to ED - she voiced understand ing.Follow -up in 1 week for BP check Obesity 481138800 E66.9 38.8 at last visit. weigh-in not tolerated due to knee pain today Hyperlipidemia 14405437 E78.5 08/22/2020 tc 248, HDL 65, LDL 163 CV risk 19%. starting statin. recehck liver enzymes once month. Menopausal flushing 1983 46788 N95.1 tolerating well, increased dose on her own. advised not to do this but increase has helped more. - advised counseling -Patient was educated on his prescribed medication s, rationale for medication s, dosing indication s, adverse reactions, black box warning,-C all center with questions/ concerns. Go to ER or call 911 for crisis (e.g., suicidal behaviors, suicidal ideations, intent or plan emerge). Additional ly, patient has suicide hotline #.- f/u one month- call with questions Effusion o f joint of left knee [id number] 51417 M25.462 Harmful pa ttern of use of alcohol 33082554 F10.10 patient drinks 8 beers every other night after work. We discussed in great detail recommenda tions. Agreed to cut to half for now. [id number] Royce Bernal MD [facility] [address] [place] [address] 10/15/2021 14:11:09 10/16/2021 09:23:07 Pain of left knee joint 0638697065 09410 M25.562 Derangemen t of posterior horn of medial meniscus of left knee 3438065961 5224342 M23.322 Sprain of medial collateral ligament of knee 31959753 S83.412A ??Gr 1 [id number] Bret omer MD [facility] [address] [place] [address] 03/21/2022 15:06:09 03/21/2022 15:51:50 Essential hypertension 34233608 I10 BP 120/70refi [facility] Depression screening 171 598326 Z13.31 PHQ 0 Vitamin D deficiency 347 29394 E55.9 09/05/21: Vit D 10.4start vit D3pt states she is tired all the time Hyperlipidemia 75021038 E78.5 refill Menopausal flushing 1984 90050 N95.1 refill Smoker 73145150 F17.200 not ready to quit at this time Obesity 137980206 E66.9 Altered kings wel function 93402644 R19.4 c/o diarrhea and baby poop which is not normal for herno blood in stoolstria l probioticl ast colonoscop y 3 yrs ago, normalrequ esting GI referral [id number] MANUELITO LOVE [facility] [address] [place] [address] 06/24/2023 11:58:50 06/24/2023 15:30:08 Prediabetes 399097420 R73.03 6.2 08/2021 Hyperlipidemia 31420609 E78.5 08/22/2020 tc 248, HDL 65, LDL 163 CV risk 19%. starting statin. recehck liver enzymes once month. Obesity 132780272 E66.9 36.7 Vitamin D deficiency 347 02208 E55.9 repeat Menopause present 432576 006 N95.1 start vitamin D and calcium Chronic diarrhea 1708165 09 K52.9 patient with pmhxz alcohol use disorder, smoking with chronic diarrhea, bloating, gerd with esophagiti s - cut back on alcohol, taper- GI referral Alcohol in take above recommended sensible limits 476933506 F10.10 drink 1/2- 1 pint hard alcohol or 8 beers per nightadvis e tapering downeducat ion on alcohol provided including effects on heart, stomach, intestines , brain etc Screening mammography 24 933255 Z12.31 due for mammogram Gastro-eso phageal reflux disease with esophagitis 262426816 K21.00 1.Avoid lying flat 3 to 4 hours after eating or drinking. 2.Elevate the head of bed 4-8 inches. 3.Avoid tight clothing around the waist. 4.Decrease dietary fat intake. 5. Avoid acidic foods (citrus and tomato-bas ed products), alcohol, caffeinate d beverages, chocolate, onions, garlic, salt, and peppermint oil. 6. Avoid large meals. 7. Avoid drinking coffee, or carbonated beverages. 8. Weight loss can help with symptoms, try to diet and exercise. Iron defic iency anemia 53348458 D50.9 hx of anemiawill check iron Generalize d anxiety disorder 37815160 F41.1 NIKHIL 13- advised counseling -Patient was educated on his prescribed medication s, rationale for medication s, dosing indication s, adverse reactions, black box warning, dosing indication s, SE (e.g., decreased libido, weight gain, gynecomast ia, and galactorrh ea) and the risks and benefits. -Call center with questions/ concerns. Go to ER or call 911 for crisis (e.g., suicidal behaviors, suicidal ideations, intent or plan emerge). Additional ly, patient has suicide hotline #. - f/u one month - call with questions [phone] MANUELITO LOVE [facility] [address] [place] [address] 07/30/2023 15:57:21 07/30/2023 17:01:00 Prediabetes 617718699 R73.03 6.2 08/2021 Hyperlipidemia 06502827 E78.5 08/22/2020 tc 248, HDL 65, LDL 163 CV risk 19%. starting statin. recehck liver enzymes once month. Obesity 831965139 E66.9 36.6 Vitamin D deficiency 347 15824 E55.9 repeat Menopause present 721621 006 N95.1 start vitamin D and calcium Chronic diarrhea 7687602 09 K52.9 following with GI - cut back on alcohol, taper- GI referral Alcohol in take above recommended sensible limits 914084972 F10.10 drink 1/2- 1 pint hard alcoholadv ise tapering downeducat ion on alcohol provided including effects on heart, stomach, intestines , brain etc Screening mammography 24 276801 Z12.31 due for mammogram Iron defic iency anemia 07183856 D50.9 hx of anemiawill check iron Generalize d anxiety disorder 30591444 F41.1 NIKHIL 5 from 13- advised counseling -Patient was educated on his prescribed medication s, rationale for medication s, dosing indication s, adverse reactions, black box warning, dosing indication s, SE (e.g., decreased libido, weight gain, gynecomast ia, and galactorrh ea) and the risks and benefits.- Call center with questions/ concerns. Go to ER or call 911 for crisis (e.g., suicidal behaviors, suicidal ideations, intent or plan emerge). Additional ly, patient has suicide hotline #.- f/u one month- call with questions HIV screening 708792363 Z11.4 screen Essential hypertension 98039043 I10 did not take BP medication today Gastro-eso phageal reflux disease with esophagitis 773290600 K21.00 1.Avoid lying flat 3 to 4 hours after eating or drinking. 2.Elevate the head of bed 4-8 inches. 3.Avoid tight clothing around the waist. 4.Decrease dietary fat intake. 5. Avoid acidic foods (citrus and tomato-bas ed products), alcohol, caffeinate d beverages, chocolate, onions, garlic, salt, and peppermint oil. 6. Avoid large meals. 7. Avoid drinking coffee, or carbonated beverages. 8. Weight loss can help with symptoms, try to diet and exercise. [id number] Bret omer MD [facility] [address] [place] [address] 09/17/2023 15:23:21 09/17/2023 16:15:16 Type 2 diabetes mellitus 56743776 E11.9 wants to control with diet at this time. Foot exam: normal monofilame ntEye [place] [facility] [place], normal tatin : heavy alcohol usepneumon ia vaccine: 09/17/2023 Administra tion of pneumococcal vaccine 06020743 Z23 Tinea pedis 3989630 B35. 3 [place] dist flaky skin b/l feet Alcohol in take above recommended sensible limits 114813176 F10.10 switched from beers to 4 glasses of wineadvise tapering downeducat ion on alcohol provided including effects on heart, stomach, intestines , brain etcgiven number to [facility] Onychomycosis 083838082 B35.1 all nials affected. due to heavy alcohol use she is not best candidate for oral tx at this time. - trial topical solution- mix 1:1 vingar and yellow Listerine and soak feet 3x per week [id number] Taran Lorenzo MD [facility] [address] [place] [address] 03/24/2024 14:15:00 03/24/2024 14:55:20 Type 2 diabetes mellitus 01739706 E11.9 wants to control with diet at this time. Foot exam: normal monofilame ntEye Exam[facility] [place], normal tatin : heavy alcohol usepneumon ia vaccine: 09/17/2023 Anxiety 22803536 F41.9 IBY8ITU 2controlle d at this timeadvise d not drinking on medication 'sdenies si/hi Iron defic iency anemia 14889087 D50.9 hx of anemiawill check iron Alcohol in take above recommended sensible limits 429171873 F10.10 4 12 oz beer 3x per weekadvise tapering downeducat ion on alcohol provided including effects on heart, stomach, intestines , brain etcadvised AA meetings Essential hypertension 07661799 I10 did not take BP medication today Hyperlipidemia 81688427 E78.5 08/22/2020 tc 248, HDL 65, LDL 163 CV risk 19%. starting statin. recehck liver enzymes once month. Obesity 964650377 E66.9 36.6 Health Concerns Section Related Observation LastModified by Organization Detai ls LastModified Time None Recorded Concern Status LastModified by Organization Details LastModified Time None Recorded Advance Directives Directive N: Payers Insurance Date Sequence Insurance Name Policy Number Policy Chambers Covered Member ID Chambers Member ID Guarantor Name 04/08/2019 SLIDING FEE SCHEDULE - DISCOUNT Natalie Sparks 06/24/2023 1 [place] [id number] Natalie Sparks [id number] Natalie Sparks 06/24/2023 1 [place] [id number] Natalie Sparks [id number] Natalie Sparks 06/24/2023 1 [place] [employer] Natalie Sparks [id number] Natalie Sparks 06/24/2023 [facility] [facility] PRIOR TO 08/17/2020 (MEDICAID REPLACEMENT - HMO) Natalie Sparks [id number] Natalie Sparks 06/24/2023 1 [facility] PRIOR TO 08/17/2020 (MEDICAID REPLACEMENT - HMO) Natalie Sparks [id number] Natalie Sparks 02/14/2017 SLIDING FEE SCHEDULE - DISCOUNT Natalie Arevalome 12/23/2018 1 *SELF PAY* Olga Lidia Sparks 03/21/2024 1 R [id number] Natalie Sparks [id number] Natalie Sparks 02/12/2018 SLIDING FEE SCHEDULE - DISCOUNT Natalie Sparks Notes Date Note Type Note Provider Name and Address Organization Details Recorded Time 03/21/2022 text/html Pt presents for med refills. Reports she has been out of her BP meds and has been taking old medication lisinopril 30. States that she knew her BP was up due to headaches. MANUELITO BLANDON Attn: [address] [place], [address], [facility] 03/21/2022 15:54:21 06/24/2023 text/html Natalie is a 57 YO AAF smoker pmxh HTN, chronic diarrhea, alcohol use disorder, hyperlipidemia, prediabetes, OA knees here to re-establish care last seen by me 09/2021 Her main concern today is her stomach issues. She has not had any solids stools for many months. She takes miralax to get BM. She has bloating with anything she eats/drinks. Water makes me bloated now. She had a colonoscopy in her 40's that was normal. She does eat spicy foods, smoke cigarettes and drinks alcohol everyday. denies blood in her stool, recent sudden weight loss, fevers. Alcohol: She drinks about 1/2 pint jagermeister (yesterday she did drink one pint).other nights she drinks about 8 beers. This helps her with her anxiety. NIKHIL: + NIKHIL today. not sleeping well due to waking up multiple times. using alcohol to help. denies si/hi now but has had passive SI in the past. smoking: smoking 1ppd since 2008 due to horrible divorce. L knee pain: seeing [facility] in [place] . every 3 months get shots on both knees. has a meniscal tear in L knee. putting off knee surgery at this time. htn: Good medication compliance with losartan-hcz water makes her bloat MANUELITO LOVE Attn: [address] [facility], [place], [address], [facility] 06/24/2023 21:20:59 07/30/2023 text/html Natalie is a 57 YO AAF smoker pmxh HTN, chronic diarrhea, alcohol use disorder, hyperlipidemia, prediabetes, OA knees here to re-establish care Was seen by Dr Chandra office seen yesterday. She was advised mag citrate and IB guard 500mg. will be having egd/colon screen set up soon. She has not cut back drinking but did stop beers. PPI has helped some. anxiety has improved on sertraline. skips 2-3 x per week. NIKHIL improved. Alcohol: She drinks about 1/2 pint jagermeister most day still. NIKHIL: + NIKHIL today but improved. sleep is improved. denies si/hi now but has had passive SI in the past. smoking: smoking 1ppd since 2008 . has not stopped. htn: Good medication compliance with losartan-hcz MANUELTIO LOVE Attn: Account[address] [facility], [place], [address], [facility] 07/31/2023 09:36:04 09/17/2023 text/html Natalie is a 57 YO AAF smoker pmxh HTN, chronic diarrhea, alcohol use disorder, hyperlipidemia, prediabetes, OA knees here for newly diagnosed DM She has cut out beer but started drinking 4 glasses of wine per night. She stopped sertraline and does notice anxiety again. States she cut back on pastas and breads. MANUELITO LOVE Attn: Account[address] [facility], [place], [address], [facility] 09/17/2023 21:03:32 03/24/2024 text/html Natalie is a 58 YO AAF smoker pmxh HTN, chronic diarrhea, alcohol use disorder, hyperlipidemia, diabetes, OA knees here for f/u Raulito checked herself into a rehav program for 30 days of detox. They prescribed her prn hydrozine 50mg and venlafaxine 37.5 mg nightly. She does take medications most days. I feel irritable the days I do not take it. Since leaving the facility she has started drinking again. At this time she drinks 4 12 oz beers 3x per week. She is not ready to cut down. She is open to AA meetings again. denies si/hi. Would like labs for iron and DM today. Needs refills. MANUELITO LOVE Attn: [address] [facility], [place], [address], [facility] 03/24/2024 15:04:37 OBGyn Episode No OBEpisode recorded.
[2024-08-19] MEDS: HYDROcodone/acetaminophen (*CRX) 5-325 MG TABLET 1 TAB PO (15:38)
[2024-08-19] MEDS: IBUPROFEN 600 MG TABLET PO (15:38)
[2024-08-19 15:42] VITALS: BP 165/61; PULSE 56; RESP 13; O2SAT 96
== END 2024-08-19 17:52 | disposition home or self-care (01) ==
PROVIDERS: Emergency Provider Emergency Medicine; PCP Physician Assistant
DX: S13.9XXA Sprain of joints and ligaments of unspecified parts of neck, initial encounter (principal); I10 Essential (primary) hypertension; F17.210 Nicotine dependence, cigarettes, uncomplicated; V73.5XXA Driver of bus injured in collision with car, pick-up truck or van in traffic accident, initial encounter
CPT/HCPCS: 72125; 72128; 72131; 99284; A9270